=== PATIENT | female | born 1950 | race Caucasian/White ===

== ENCOUNTER 2017-09-13 10:02 | Emergency (ER) | payer MEDICARE, MEDICAID, SELFPAY ==
[2017-09-13 10:04] VITALS: BP 125/83; PULSE 75; RESP 17; TEMP 36.4; O2SAT 95; BMI 56.5
--- NOTE | 2017-09-13 11:45 | ED.VISSUMM ---
- ER Visit Summary Date of Service: 09/13/17 Chief Complaint: Dislodged PEG tube History of Present Illness: The patient is a 67 F presenting secondary to a dislodged PEG tube. Patient has a history of an anoxic brain injury and has had a long-standing PEG tube. [facility] was [facility] to [facility] at the [facility] for an unknown amount of time. Nursing was unable to replace this. Physical Examination: Physical exam unremarkable except for the patient's baseline anoxic brain injury. Abdominal exam shows the PEG site with mild swelling and erythema but no drainage. Test Results: None indicated Emergency Department Course and Treatment: Patient presented with dislodgment of her PEG tube. A PEG tube was obtained from central supply. I lubricated this with lubricating jelly, and using slow gentle pressure I was able to replace the PEG tube into the stomach. Gastric contents immediately were returned into the tube confirming placement. Balloon was inflated to 6 cc. Patient tolerated this well. Patient will be discharged. Disposition: Discharge Impression: 1. Visit for PEG tube malfunction 2. PEG tube replacement by ED physician This note was generated with [employer] dictation software. It may contain incorrect words, spelling, and punctuation that were not noted in review of the chart prior to signing ED Disposition - Plan for ED Patient: Disposition: Home or Assisted Living Chief Complaint: Wound Check Diagnosis: PEG tube malfunction Instructions: ED G Tube Replacement Referrals: Raman Gomez III, MD [Primary Care Provider] - As Needed
--- NOTE | 2017-09-13 11:48 | ED.DCSUM_ITS ---
- ER Visit Summary Date of Service: 09/13/17 Chief Complaint: Dislodged PEG tube History of Present Illness: The patient is a 67 F presenting secondary to a dislodged PEG tube. Patient has a history of an anoxic brain injury and has had a long-standing PEG tube. It was found to be out at the shelter for an unknown amount of time. Nursing was unable to replace this. Physical Examination: Physical exam unremarkable except for the patient's baseline anoxic brain injury. Abdominal exam shows the PEG site with mild swelling and erythema but no drainage. Test Results: None indicated Emergency Department Course and Treatment: Patient presented with dislodgment of her PEG tube. A PEG tube was obtained from central supply. I lubricated this with lubricating jelly, and using slow gentle pressure I was able to replace the PEG tube into the stomach. Gastric contents immediately were returned into the tube confirming placement. Balloon was inflated to 6 cc. Patient tolerated this well. Patient will be discharged. Disposition: Discharge Impression: 1. Visit for PEG tube malfunction 2. PEG tube replacement by ED physician This note was generated with [employer] dictation software. It may contain incorrect words, spelling, and punctuation that were not noted in review of the chart prior to signing ED Disposition - Plan for ED Patient: Disposition: Home or Assisted Living Chief Complaint: Wound Check Diagnosis: PEG tube malfunction Instructions: ED G Tube Replacement Referrals: Raman Gomez III, MD [Primary Care Provider] - As Needed
[2017-09-13 11:51] VITALS: BP 110/48; PULSE 69; RESP 16; O2SAT 99
== END 2017-09-13 12:24 | disposition home or self-care (01) ==
LOC: ED 12:00
PROVIDERS: Emergency Provider Emergency Medicine; Family Provider Family Medicine; PCP Family Medicine
DX: Z43.1 Encounter for attention to gastrostomy (principal); G93.1 Anoxic brain damage, not elsewhere classified
CPT/HCPCS: 43760; 99284

== ENCOUNTER 2017-09-14 01:53 | Emergency (ER) | payer MEDICARE, MEDICAID, SELFPAY ==
[2017-09-14 01:54] VITALS: BP 134/112; PULSE 71; RESP 18; TEMP 36.1; O2SAT 94; BMI 27.3
--- NOTE | 2017-09-14 02:04 | ED.VISSUMM ---
- ER Visit Summary Date of Service: 09/14/17 Chief Complaint: PEG tube fell out History of Present Illness: The patient is a 67 F with history of anoxic brain injury who presents for PEG tube placement. Patient was seen earlier yesterday for the same complaint, after her PEG tube came out and staff at the nursing facility were unable to reinsert it. Patient had a PEG tube replaced in the emergency department and was [facility] facility. Patient returns now with PEG tube once again coming out and staff unable to replace it. Patient has an 18 Luxembourger tube. No other complaints or concerns other than PEG tube placement. Physical Examination: Patient is awake and alert, normal for self. Examination of the abdomen shows gastrostomy site with mild erythema but no exudate or induration. Abdomen is soft and nontender. Test Results: ] Clinical Impression(s) from Imaging Studies KUB X-Ray 09/14/17 02:50 IMPRESSION: Gastrostomy tube is in adequate position. Electronically Signed: Alejandro Lazaro MD at 3:16 EDT , Service support , Emergency Department Course and Treatment: An 18 Luxembourger PEG tube was not available for replacement. Thus a 20 Luxembourger tube was used as a temporary replacement until the [facility] facility can obtain an 18 Luxembourger for definitive replacement. Using 6 cc of sterile water, the balloon was inflated and had no leakage. The sterile water was aspirated from the balloon, and the tube was lubricated. Using gentle pressure, the tube easily slid into the gastrostomy site. The balloon was inflated with the 6 cc of sterile water. An x-ray of the abdomen with Gastrografin was performed to confirm proper placement of the tube, and tube was in satisfactory position. She was [facility] to her [facility] facility with instructions that the 20 Luxembourger tube will need to be replaced with the appropriate sized 18 Luxembourger PEG tube as soon as possible. Treatment Plan: [] Disposition: [] Impression: recurrent PEG tube displacement, replacement of PEG tube by physician This note was generated with [employer] Technologies[employer] software. It may contain incorrect words, spelling, and punctuation that were not noted in review of the chart prior to signing ED Disposition - Plan for ED Patient: Disposition: Assisted Facility Chief Complaint: Other, Pain/Inj Instructions: ED G Tube Replacement Referrals: Raman Gomez III, MD [Primary Care Provider] - 1 Day for another exam Additional Instructions: Your feeding tube was temporarily replaced tonight with a 20 Luxembourger tube. The balloon was inflated with 6 cc of sterile water. Placement was confirmed with an x-ray and Gastrografin dye. Please follow-up as soon as possible with your doctor to have the correct size tube, which is an 18 Luxembourger, placed. If you have any worsening of your condition or any new concerning symptoms, please return immediately to the emergency department for another evaluation.
--- NOTE | 2017-09-14 02:05 | NURSING ---
called nursing facility to confirm leg tub size and nursing refractory products supervisor is finding a peg tube to correctly fit the pt.
--- NOTE | 2017-09-14 02:30 | NURSING ---
used a 20 vietnamese peg tube and inserted into the pt site. before placement, checked balloon with sterile water prior to the insertion, no leakage noted when inflated. peg tube inserted and 5cc balloon inflated with the sterile water.
--- NOTE | 2017-09-14 02:40 | NURSING ---
peg tubed flushed with 30 cc w/ no issues
--- NOTE | 2017-09-14 02:50 | RAD_ITS ---
STUDY: X-RAY - ABDOMEN REASON FOR EXAM: Female, 67 years old. Replacement of PEG tube. Confirm PEG tube placement. TECHNIQUE: A single AP supine view of the abdomen and upper pelvis was performed following injection of contrast material through an indwelling PEG tube. COMPARISON: None. FINDINGS: Gastrostomy tube tip overlies the expected region of the body the stomach. The stomach itself is not well delineated due to nondistention. There is contrast within the duodenum and proximal loops of jejunum and there is also minimal contrast within the gastric lumen. This suggests that the tube is within the lumen of the stomach and its tip is directed towards the duodenum. There is no demonstrated leakage of contrast into the peritoneal cavity or into the abdominal wall.. There is an unremarkable bowel gas pattern. There is no demonstrated free abdominal air. There are 2 tubes overlying the right side of the abdomen, of indeterminate significance.. Normal soft tissue structures. Normal visualized osseous structures. RAD/Abdomen Single View IMPRESSION: Gastrostomy tube is in adequate position. Electronically Signed: Alejandro Lazaro MD at 3:16 EDT , Service support ,
--- NOTE | 2017-09-14 03:29 | DCINST.ED_ITS ---
ED Disposition - Plan for ED Patient: Disposition: Retirement Facility Chief Complaint: Other, Pain/Inj Instructions: ED G Tube Replacement Referrals: Raman Gomez III, MD [Primary Care Provider] - 1 Day for another exam Additional Instructions: Your feeding tube was temporarily replaced tonight with a 20 Nicaraguan tube. The balloon was inflated with 6 cc of sterile water. Placement was confirmed with an x-ray and Gastrografin dye. Please follow-up as soon as possible with your doctor to have the correct size tube, which is an 18 Nicaraguan, placed. If you have any worsening of your condition or any new concerning symptoms, please return immediately to the emergency department for another evaluation.
--- NOTE | 2017-09-14 04:01 | ED.RN ---
REPORT CALLED TO NURSE AT [facility]
== END 2017-09-14 04:02 | disposition skilled nursing facility (03) ==
PROVIDERS: Emergency Provider Emergency Medicine; Family Provider Family Medicine; PCP Family Medicine
DX: Z43.1 Encounter for attention to gastrostomy (principal); Z87.820 Personal history of traumatic brain injury
CPT/HCPCS: 43760; 74018; 99284

== ENCOUNTER 2018-04-18 06:00 | Observation (INO) | payer MEDICARE, MEDICAID, SELFPAY ==
[2018-04-18] VITALS (9 sets, daily range): BP systolic 89–140; BP diastolic 51–78; PULSE 75–84; RESP 16–20; TEMP 35.9–37.3; O2SAT 94–96; BMI 24.9; BMI 27.4
--- NOTE | 2018-04-18 07:13 | ED.VISSUMM ---
- ER Visit Summary Date of Service: 04/18/18 Chief Complaint: Pulled PEG tube out History of Present Illness: The patient is a 67 F who presents after having pulled her PEG tube out. She has a history of encephalopathy and anoxic brain injury. On review of records she does appear to have done this before. No history is able to be obtained from the patient. She is nonverbal. Physical Examination: Initial blood pressure 89/60 vitals otherwise unremarkable Moist mucous membranes Heart regular rate and rhythm Lungs are clear Abdomen soft There is some mild oozing and bleeding from a left upper abdominal wound Test Results: Not indicated Emergency Department Course and Treatment: I was unable to replace the PEG tube. I am unable to even follow the tract. I spoke to Dr. Sharma. He asked that the patient be admitted under the hospitalist service on observation status with plan for EGD and PEG replacement later today. Treatment Plan: [] Disposition: Admit Impression: PEG malfunction This note was generated with [employer] dictation software. It may contain incorrect words, spelling, and punctuation that were not noted in review of the chart prior to signing ED Disposition - Plan for ED Patient: Referrals: Raman Gomez III, MD [Primary Care Provider] -
--- NOTE | 2018-04-18 07:38 | PCM.HP.STD ---
Problem List (1) PEG tube malfunction Status: Acute History of Present Illness Date of Admission: 04/18/18 Chief Complaint: pulled out peg tube The patient is a 67 year old F with anoxic brain injury, pulled out her PEG tube. Sent to the emergency room was attempted to be replaced but was unsuccessful. Dr. Carrizales, the emergency room, contacted Dr. Overton of general surgery be in today to attempt to replace the PEG tube. Patient is confused and nonverbal and unable to provide any history whatsoever. [] Past Medical History Medical History: Medical History (Last Updated 04/18/18 @ 07:41 by Alex Rosenberg DO) Anemia D64.9 Anoxic brain injury G93.1 Dysphagia R13.10 GERD (gastroesophageal reflux disease) K21.9 Hydrocephalus in adult G91.9 Allergies ampicillin Allergy (Verified 09/14/17 01:56) Unknown levofloxacin Allergy (Verified 09/14/17 01:56) Unknown Penicillins Allergy (Verified 09/14/17 01:56) Unknown piperacillin Allergy (Verified 09/14/17 01:56) Unknown Quinolones Allergy (Verified 09/14/17 01:56) Unknown rifampin Allergy (Verified 09/14/17 01:56) Unknown streptomycin Allergy (Verified 09/14/17 01:56) Unknown tazobactam Allergy (Verified 09/14/17 01:56) Unknown Home Medications: Ambulatory Orders Medication Instructions Recorded Cranberry Fruit Extract [Cranberry 1 gm GT QHS 09/14/17 Extract] Multivitamin [Daily Multiple 1 each GT DAILY 09/14/17 Vitamin] Omeprazole [Prilosec] 20 mg GT QHS 09/14/17 Surgical History: - - PEG Lives: [facility] Living Smoking Status: Unknown if ever smoked Review of Systems Comment: Given the patient's chronic encephalopathy and nonverbal status, further social history, review of systems is unobtainable. VTE Information - Inpt Only VTE Present on Admission: No VTE Mechan Device Prophylaxis: SCD's VTE Pharm Prophylaxis ordered?: No Patient Problems: Active and Suspected Problems PEG tube malfunction (Acute) - Physical Exam General: Confused, - - Awake. Does not respond to any commands. Clutching a baby doll in her arms. HEENT: Atraumatic, Normocephalic Oral: Moist Mucosa, No Gingival or Mucosal Lesions/ Ulcerations Neck: No Nodes, Thyroid Normal Size and Texture Lungs: Clear to auscultation, Normal air movement, No rhonchi, No wheeze Cardiovascular: Regular rate, Regular Rhythm, Normal S1, Normal S2, No murmurs Abdomen: Bowel Sounds Present, Soft, Non Tender, Non-Distended, Obese, - - Stoma in left upper quadrant with some mild sanguinous drainage. No surrounding erythema or cellulitis. Extremities: No edema, No Calf Tenderness Musculoskeletal: No Tenderness to Palpation of Joints or Extremities, Muscle Wasting Vital Signs Temp Pulse Resp BP Pulse Ox 36.3 C L 84 18 89/60 L 96 04/18/18 06:02 04/18/18 06:02 04/18/18 06:02 04/18/18 06:02 04/18/18 06:02 Oxygen Delivery Method Room Air Weight: 73.255 kg Body Mass Index (BMI) 24.9 Assessment/Plan All Active Problems PEG tube malfunction (Acute) 1. Pulled out PEG tube This occurred because encephalopathy and unawareness of her overall clinical situation. Could not be replaced by the emergency room physician. Patient being brought under observation status where a general surgeon will attempt to replace it either bedside or in an endoscopy suite. Patient will be n.p.o. In the interim. We will check some preliminary labs including CBC, INR and BMP 2. DVT prophylaxis with SCDs for now Advanced care planning: Spent an additional the history and physical discussing with the patient's sister, Elaine Andino, who is the patient's legal guardian. Patient is DNR Comfort Care arrest. Also discussed and verify that the patient has no quality of life at home. Ms. Andino states that the only reason the patient is being kept alive is because of the patient's mother's insistence who is 97 years old. Ms. Andino states that if the patient were to that would kill her mother. Did offer palliative care but they state they have seen them before but not ready to proceed. Patient would be an ideal hospice candidate. Code Visit OBSV E&M: 05624 Initial observation care L2 Procedures: 21903 Advncd Care Plan 30 Min
--- NOTE | 2018-04-18 09:10 | ED.RN ---
FLOOR QUESTIONED WHY PT DID NOT HAVE A IV OR ANTIBIOTICS GIVEN. THOSE WERE NOT ORDERED IN ED AND MEDS WERE ORDERED BY DR SULTANA
--- NOTE | 2018-04-18 09:53 | EKGRS_ITS ---
Test Reason : PREOP Blood Pressure : / mmHG Vent. Rate : 096 BPM Atrial Rate : 076 BPM P-R Int : 166 ms QRS Dur : 062 ms QT Int : 390 ms P-R-T Axes : 067 018 043 degrees QTc Int : 492 ms Sinus rhythm with occasional and consecutive Premature ventricular complexes and Fusion complexes Low voltage QRS Septal infarct , age undetermined Abnormal ECG Confirmed by FREDYD DON, GARÍCA ([id number]), editorial intern ROBERTO BLAKE ([id number]) on 04/26/2018 12:05:14 PM Referred By: VICENTE Confirmed By:GARCÍA HAYES MD
[2018-04-18 10:30] LABS: Absolute Lymphocyte Count 1.54 X10^3/ul (0.83-4.51); Absolute Neutrophil Count 3.4 X10^3/uL (2.0-7.7); Basophil# 0.04 X10^3/uL; Basophil% 0.7 % (0-1); Eosinophil# 0.18 X10^3/uL; Eosinophils% 3.2 % (0-5); Lymphocyte # 1.54 X10^3/ul (4.0); Lymphocyte % 27.7 % (19-41); Mean Corp Hgb Conc 32.6 g/gl (32-36); Mean Corpuscular Hgb 31.9 pg (27.0-32.0); Mean Corpuscular Volume 97.9 fL (81-99); Mean Platelet Vol. 11.8 fl (6.2-12.0); Monocyte# 0.44 X10^3/uL; Monocyte% 7.9 % (0-10); Neutrophil # 3.35 X10^3/uL (2.7-7.7); Neutrophil % 60.3 % (47-70); Platelet Count 127 K/mm3 (150-450); RBC Distribution Width CV 14.3 % (11.6-14.6); RBC Distribution Width SD 50.9 fl (35.1-43.9); Red Blood Count 4.39 M/mm3 (4.2-5.4); White Blood Count 5.6 K/mm3 (4.4-11.0)
[2018-04-18 10:31] LABS: POSITIVE COUNT NO; POSITIVE DIFFERENTIAL NO; POSITIVE MORPHOLOGY NO
[2018-04-18 10:31] LABS: Anion Gap 6 (5-15); BUN 24 mg/dL (7-18); BUN/Creat Ratio 56.1 RATIO (10-20); Calcium,Total 8.1 mg/dL (8.5-10.1); Chloride 112 mmol/L (98-107); Creatinine, Serum 0.43 mg/dL (0.55-1.02); EST Glomerular Filtration Rate 156 mL/min (>60); Est Glom Filt Rate - Afr Amer 189 mL/min (>60); Estimated Creatinine Clearance 53.09 ml/min; Glucose 85 mg/dL (74-106); Potassium 4.4 mmol/L (3.5-5.1); Sodium Level 142 mmol/L (136-145)
[2018-04-18 11:13] LABS: International Normalized Ratio 1.1; Prothrombin Time (Protime)PT. 14.5 SECONDS (11.7-14.9)
--- NOTE | 2018-04-18 11:30 | CASEMGMT ---
Addendum entered by Caitlyn Dunbar 04/18/18 12:31: SW attempted to call pt's sister Elaine, no answer, voicemail left. SW spoke with RN who states she spoke to Elaine earlier and Elaine is not able to come in today. SW will attempt to call pt's sister Elaine as time permits. Original Note: Addendum entered by Caitlyn Dunbar 04/18/18 11:58: SW received letter of guardianship from [facility]. SW placed document on pt's chart. Original Note: Social Work Note Pt is listed as being from [facility]. Per H+P, pt has anoxic brain injury, confused and nonverbal. H+P states pt's sister Elaine Andino is pt's legal guardian. SOPHIA placed a call to Marga at [facility] and per Marga pt is halfway resident at [facility], has bed hold, and is able to return once medically cleared. Marga states that she has guardianship paperwork that she is able to fax to this worker. SW will wait to see if pt's sister Elaine comes to [facility] or will call Elaine to confirm discharge plans. Per H+P, pt would be ideal Hospice candidate. Plan: Pt to likely return to [facility] halfway once medically cleared Caitlyn Dunbar LABOR RELATIONS ANALYST, LENS MARKER
--- NOTE | 2018-04-18 12:36 | CASEMGMT ---
Addendum entered by Caitlyn Dunbar 04/18/18 15:35: Green sheet on pt's chart in the event pt is able to discharge later this evening. Original Note: Social Work Note SW received call from pt's Legal Guardian and sister Elaine. 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 Plan: [facility] once medically cleared Caitlyn Dunbar CATERING ASSOCIATE, HOME DAY CARE PROVIDER
--- NOTE | 2018-04-18 12:54 | CON.PCM_ITS ---
<Erika Romero - Last Filed: 04/18/18 12:54> Problem List (1) PEG tube malfunction Status: Acute - Consult Date of Consult: 04/18/18 - Reason for Consult HISTORY AND PHYSICAL ? Elena FLANAGAN 1950 ? CHIEF COMPLAINT: ??pulled out PEG tube ? HPI: The patient is a 67 year old female who presented to the emergency department at [facility] on 04/18/18 after pulling out her PEG tube. 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 ?She is nonverbal and history is obtained from her chart, no family present at time of visit. The patient originally had a PEG placed in [place] and has had multiple replacements since that time.? The patient is known previously to Dr. Sharma, she had a prior PEG tube replaced by him in 2012. The emergency department physician attempted to replace the PEG tube in the ED but this was unsuccessful. The was admitted to the floor by the hospitalist service for observation and Dr. Sharma was consulted for replacement of the PEG tube. No known history of problems with sedation based upon chart review. ? 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 ? ? PAST SURGICAL HISTORY Egd W/O [facility] Specimen W/Bx - 03/29/2005 EGD with PEG tube replacement 07/2012 ? ? ? ALLERGIES: Levaquin; Rocephin; Streptomycin; Zosyn ? PERSONAL HISTORY: SOCIAL HISTORY Marital Status: ? Tobacco Use: Never Alcohol Use: No Drug Use: No Sexual Activity: Not on file ?? ? FAMILY HISTORY: No family history on file ? REVIEW OF SYMPTOMS: unable to obtain, patient nonverbal ? PHYSICAL EXAMINATION: ? General: ?The patient is 67 year old female, well nourished, well hydrated in no acute distress. ?The patient is nonverbal ? HEENT: ?Normal cephalic, ataumatic, pupils are equally round, sclera are anicteric, mucous membranes are moist, oropharynx is clear. ?Neck has no masses, asymmetry or lymphadenopathy. ? ? Respiratory: ?Clear to auscultation and percussion. ?Normal respiratory excursion and pattern. ? Cardiac: ?Examination is regular rate and rhythm. Normal S1/S2 ? Abdominal exam: ?+ small seeping wound on abdomen at PEG site. Soft, nontender, ?with no palpable masses. ?No hepatosplenomegaly. ?No palpable hernias. ? Rectal exam: exam deferred ? Extremities: ?no clubbing, cyanosis or edema. ?No adenopathy. ? Other: ? ? LABORATORY VALUES: As Noted ? RADIOLOGIC STUDIES: ?As Noted ? IMPRESSION: patient pulled out PEG tube, need for replacement ? PLAN: ?I have reviewed my findings with Dr. Sharma, who will also evaluate the patient. ??He plans to perform EGD with replacement of PEG tube later this afternoon ? Diagnoses: 536.42 PEG tube malfunction ?(primary encounter diagnosis) Erika Romero PA-C <Viktor Sharma - Last Filed: 04/18/18 15:58> - Consult Date of Consult: 04/18/18 - Reason for Consult H&P reviewed, patient with displaced PEG tube in persistent vegetative state. contracted, Cardioresp exam stable as above. discussed with family for PEG tube placement
--- NOTE | 2018-04-18 13:11 | NURSING ---
CALLED REPORT TO ENDO PT TRANSFERRED TO ENDO IN BED.
--- NOTE | 2018-04-18 14:00 | GASB_PTH ---
PATIENT: RONALD FLANAGAN LOC: MS3 U#:[id number] AGE/SX: 67/F ROOM: NM324 RE04/18/[address]: Dr. Alex Rosenberg DO : 1950 BED: 1 DIS: 04/18/2018 SPEC #: [id number] RECD: 04/18/18 16:12 STATUS: SIDDHARTHA REQ #: [id number] ELSI: 04/18/18 14:[address]: Viktor Sharma DEPT: SURGICAL PATHOLOGY RECD BY: Speedy Frazier ENTERED: 04/19/18 10:25 SP TYPE: Gastric Bx OTHR DR: DO Dr. Raman Valladares III, MD Dr. Richard Guttman, MD Tissues: Gastric mucous membrane Procedures: Surgery Specimen Level IV Comments: @ Ordering doctor for SUIV edited from to DR.RGUTTM Tristan by MEAGAN at 04/19/18 1515 @ Submitting doctor edited from to DR.RGUTTM Tristan by MEAGAN at 04/19/18 1515 HEADER OPERATION: EGD - PEG tube insertion PRE-OP DIAGNOSIS: PEG tube malfunction / needs replaced TISSUE SUBMITTED: Antral biopsy for histo and H. pylori MICROSCOPIC DIAGNOSIS Antral biopsy: Mild gastritis. See microscopic description and comment. LARS:john 04/20/18 COMMENT The results of immunohistochemistry for Helicobacter pylori will be reported separately ([id number]). MICROSCOPIC DESCRIPTION Slides are reviewed. The specimen shows fragments of gastric mucosa with chronic inflammatory cell infiltrates in the lamina propria consisting of lymphocytes and plasma cells, consistent with mild chronic gastritis. GROSS DESCRIPTION Received in fixative is one container labeled with the patient's name and designated antral biopsy. The specimen consists of one irregular fragment of light aguilar soft tissue that measures 0.3 x 0.2 x 0.1 cm. The specimen is totally submitted in one cassette. / LARS:john 04/19/18 TC:3 [facility]: [id number]
--- NOTE | 2018-04-18 14:00 | IMM_PTH ---
PATIENT: RONALD FLANAGAN LOC: MS3 U#:[id number] AGE/SX: 67/F ROOM: TN324 RE04/18/[address]: Dr. Alex Rosenberg DO : 1950 BED: 1 DIS: 04/18/2018 SPEC #: [id number] RECD: 04/20/18 09:06 STATUS: SIDDHARTHA REQ #: [id number] ELSI: 04/18/18 14:[address]: Viktor Sharma DEPT: IMMUNOHISTOCHEMISTRY RECD BY: Chel Motley ENTERED: 04/20/18 09:07 SP TYPE: IMMUNO OTHR DR: DO Dr. Raman Valladares III, MD Tissues: Stomach, NOS Procedures: H Pylori (initial) PHYSICIAN & INSTITUTION [place] [id number] SPECIMEN INFORMATION: Tissue Source: Antral biopsy Clinical Info: PEG tube malfunction Specimen Number: [id number] CPT code: 46982 METHODOLOGY: Deparaffinized sections of prefer/formalin-fixed tissue or PAP/DQ stained slides are incubated with monoclonal/polyclonal antibodies/oligonucleotide probes. Localization is made via biotin free immunoperoxidase method. Appropriate controls are performed and reacted as expected. Results on target cell population are indicated in the following table: RESULTS: ANTIBODY / CLONE RESULT H Pylori (polyclonal) negative These tests were developed and their performance characteristics determined by [facility]. They may not have been cleared or approved by the U.S. Food and Drug Administration. The FDA has determined that such clearance or approval is not necessary. INTERPRETATION: Antral biopsy: Negative for Helicobacter pylori organisms. SJ:john 04/23/18
--- NOTE | 2018-04-18 15:53 | CASEMGMT ---
Social Work Note [facility] Caitlyn Dunbar RELAY CHECKER, RAILCAR SWITCHER
--- NOTE | 2018-04-18 15:57 | OP.ENDO_ITS ---
Patient Name: Elena Mix Procedure Date: 04/18/2018 1:37 PM Date of : 1950 Age: 67 Procedure: Upper GI endoscopy Indications: Place PEG because patient is unable to eat, Replace PEG tube because existing gastrostomy tube came out Providers: Viktor Sharma MD Medicines: Monitored Anesthesia Care Patient Profile: This is a 67 year old female. Refer to note in patient chart for documentation of history and physical. Complications: No immediate complications. Procedure: Pre-Anesthesia Assessment: - Prior to the procedure, a History and Physical was performed, and patient medications and allergies were reviewed. The patient is unable to give consent secondary to the patient being legally incompetent to consent. The risks and benefits of the procedure and the sedation options and risks were discussed with the patient's mother. All questions were answered and informed consent was obtained. Patient identification and proposed procedure were verified by the physician in the procedure room. Mental Status Examination: persistent vegatative state. Airway Examination: small/crowded oropharyngeal airway. Respiratory Examination: clear to auscultation. CV Examination: normal. Prophylactic Antibiotics: The patient requires prophylactic antibiotics for planned PEG placement. The patient received antibiotic therapy today, before the procedure started. Prior Anticoagulants: The patient has taken no previous anticoagulant or antiplatelet agents. ASA Grade Assessment: III - A patient with severe systemic disease. After reviewing the risks and benefits, the patient was deemed in satisfactory condition to undergo the procedure. The anesthesia plan was to use monitored anesthesia care (MAC). Immediately prior to administration of medications, the patient was re-assessed for adequacy to receive sedatives. The heart rate, respiratory rate, oxygen saturations, blood pressure, adequacy of pulmonary ventilation, and response to care were monitored throughout the procedure. The physical status of the patient was re-assessed after the procedure. After obtaining informed consent, the endoscope was passed under direct vision. Throughout the procedure, the patient's blood pressure, pulse, and oxygen saturations were monitored continuously. The gastroscope was introduced through the mouth, and advanced to the jejunum. The upper GI endoscopy was accomplished without difficulty. The patient tolerated the procedure well. Scope In: 3:39:25 PM Scope Out: 3:47:20 PM Total Procedure Duration Time 0 hours 7 minutes 55 seconds Findings: The examined jejunum was normal. The in the duodenum was normal. There was evidence of a dislodged gastrostomy tube present in the gastric body. Placement of an externally removable PEG with no T-fasteners was successfully completed. The external bumper was at the 3.5 cm marking on the tube. Scattered mild inflammation characterized by congestion (edema), erosions and erythema was found in the gastric body. Biopsies were taken with a cold forceps for Helicobacter pylori testing using PyloriTek test. Biopsies were taken with a cold forceps for histology. The examined esophagus was normal. Impression: - Normal examined jejunum. - Normal. - Dislodged gastrostomy tube present. - Chronic gastritis. Biopsied. - Normal esophagus. - An externally removable PEG placement was successfully completed. Recommendation: - Please follow the post-PEG recommendations including: advance food and medications per primary care provider, change dressing once per day, start using PEG today and clean site with soap and water daily and dry thoroughly. - Continue present medications. Procedure Code(s): --- Professional --- 22475, Esophagogastroduodenoscopy, flexible, transoral; with directed placement of percutaneous gastrostomy tube 69039, Esophagogastroduodenoscopy, flexible, transoral; with biopsy, single or multiple CPT copyright 2017 [employer]. All rights reserved. The codes documented in this report are preliminary and upon crisis nurse review may be revised to meet current compliance requirements. Viktor Sharma MD 04/18/2018 3:56:11 PM This report has been signed electronically. Number of Addenda: 0 Note Initiated On: 04/18/2018 1:37 PM
--- NOTE | 2018-04-18 16:20 | PCM.TXEXTCAR ---
- Diet 04/18/18 09:29 Diet: Nothing Per Oral Isosource 1.5 50cc continuous. - Routine Orders/Code Status Code Status: DNRCC-A - Wound(s) stomach peg Wound Type: PEG TUBE Dressing Change: Dry Sterile Dressing right elbow Wound Type: cellulitiz - Problem/Diagnosis (1) PEG tube malfunction Status: Acute Current Visit: Yes - Allergies/Procedures Done in Hospital Allergies/Adverse Reactions: Allergies ampicillin Allergy (Verified 09/14/17 01:56) Unknown levofloxacin Allergy (Verified 09/14/17 01:56) Unknown Penicillins Allergy (Verified 09/14/17 01:56) Unknown piperacillin Allergy (Verified 09/14/17 01:56) Unknown Quinolones Allergy (Verified 09/14/17 01:56) Unknown rifampin Allergy (Verified 09/14/17 01:56) Unknown streptomycin Allergy (Verified 09/14/17 01:56) Unknown tazobactam Allergy (Verified 09/14/17 01:56) Unknown - Type of Care/Length of Stay Estimated LOS: More Than 30 Days Type of Care Needed: Correction/Assisted Living Rehab Potential: Poor Prognosis: Poor - Additional Orders/Day of Discharge Day of Discharge: 04/18/18 - Dietary and Speech Recommendations Dietitian Recommendations/Changes: If pt to be fed enterally prior to discharge, rec continue TF rate/flushes as ordered at [facility] -- Jevity 1.5 at goal rate of 50cc/hour w/ 38cc H2O flush every hour to provide 1800 calories, 76.56 g protein, and 1824cc free fluid per day. - Follow Up Care Primary Care Physician: Raman Gomez III, MD [Primary Care Provider] - Within 1 Month Please Follow Up With: Viktor Sharma MD When: 1 week
--- NOTE | 2018-04-18 16:22 | PCM.DC.SUM ---
Discharge Date and Diagnosis - Problem List Patient Problems: Active and Suspected Problems (Last Updated 04/18/18 @ 07:41 by Alex Rosenberg DO) PEG tube malfunction (Acute) Date of Admission: 04/18/18 Date of Discharge: 04/18/18 - Primary Discharge Diagnosis Active and Suspected Problems (Last Updated 04/18/18 @ 07:41 by Alex Rosenberg DO) PEG tube malfunction (Acute) Hospital Course and Treatment Operations: - - EGD with PEG replaced Summary of Care Provided: The patient is a 67 year old F in a persistent vegetative state, pulled out her PEG tube. Unable to be placed in the emergency room. Patient was brought to the medical floor and seen by Dr. Overton, general surgery, who performed EGD and replaced her PEG tube. Per Dr. Overton, patient can resume tube feeds and medications via the PEG tube. He would like for the patient follow-up with him in about 1 week. Advanced care planning: Spent an additional the history and physical discussing with the patient's sister, Elaine Andino, who is the patient's legal guardian. Patient is DNR Comfort Care arrest. Also discussed and verify that the patient has no quality of life at home. Ms. Andino states that the only reason the patient is being kept alive is because of the patient's mother's insistence who is 97 years old. Ms. Andino states that if the patient were to that would kill her mother. Did offer palliative care but they state they have seen them before but not ready to proceed. Patient would be an ideal hospice candidate.[] Patient Problems: Active and Suspected Problems (Last Updated 04/18/18 @ 07:41 by Alex Rosenberg DO) PEG tube malfunction (Acute) - Physical Exam Vital Signs Temp Pulse Resp BP Pulse Ox 37.3 C 76 20 H 121/77 H 96 04/18/18 16:16 04/18/18 16:16 04/18/18 16:16 04/18/18 16:16 04/18/18 16:16 Oxygen Delivery Method Room Air Weight: 80.7 kg Body Mass Index (BMI) 27.4 Intake and Output for Last 24 Hours 04/16/18 04/17/18 04/18/18 23:59 23:59 23:59 Intake Total 250 / 250 Balance 250 / 250 Laboratory Tests Past 24 Hrs 04/18/18 04/18/18 04/18/18 10:00 10:00 10:20 WBC Cancelled 5.6 Corrected WBC Cancelled RBC Cancelled 4.39 Hgb Cancelled 14.0 Hct Cancelled 43.0 MCV Cancelled 97.9 MCH Cancelled 31.9 MCHC Cancelled 32.6 RDW Cancelled 14.3 RDW Differential Cancelled 50.9 H Plt Count Cancelled 127 L MPV Cancelled 11.8 Immature Gran % (Auto) Cancelled 0.200 Neut % (Auto) Cancelled 60.3 Lymph % (Auto) Cancelled 27.7 [place] % (Auto) Cancelled 7.9 Eos % (Auto) Cancelled 3.2 Baso % (Auto) Cancelled 0.7 Immature Gran # (Auto) Cancelled Absolute Neuts (auto) Cancelled 3.4 Absolute Lymphs (auto) Cancelled 1.54 Absolute Monos (auto) Cancelled Total Counted Cancelled Not Reportable Neutrophils % (Manual) Cancelled Band Neutrophils % Cancelled Lymphocytes % (Manual) Cancelled Monocytes % (Manual) Cancelled Eosinophils % (Manual) Cancelled Basophils % (Manual) Cancelled Metamyelocytes % Cancelled Myelocytes % Cancelled Promyelocytes % Cancelled Blast Cells % Cancelled Plasma Cell % (Manual) Cancelled Other Cells % Cancelled Lymphocytes # Cancelled Nucleated RBCs/100 WBC Cancelled Differential Comment Cancelled Diff Path Review Cancelled Hypersegmented Neuts Cancelled Atypical Lymphocytes Cancelled Reactive Lymphocytes Cancelled Smudge Cells Cancelled Eosinophilia # Cancelled Basophilia # Cancelled Toxic Granulation Cancelled Dohle Bodies Cancelled Hansel Rods Cancelled Platelet Estimate Cancelled Plt Morphology Comment Cancelled RBC Morphology Cancelled Polychromasia Cancelled Hypochromasia Cancelled Poikilocytosis Cancelled Basophilic Stippling Cancelled Anisocytosis Cancelled Microcytosis Cancelled Macrocytosis Cancelled Spherocytes Cancelled Sickle Cells Cancelled Target Cells Cancelled Tear Drop Cells Cancelled Ovalocytes Cancelled Stomatocytes Cancelled [place] Bodies Cancelled [place] Cells Cancelled Bite Cells Cancelled Acanthocytes (Spur) Cancelled Rouleaux Cancelled Schistocytes Cancelled PT INR Sodium 142 Potassium 4.4 Chloride 112 H Carbon Dioxide 24.0 Anion Gap 6 BUN 24 H Creatinine 0.43 L Estim Creat Clear Calc 53.09 Est GFR (MDRD) Af Amer 189 Est GFR (MDRD) Non-Af 156 BUN/Creatinine Ratio 56.1 H Glucose 85 Calcium 8.1 L 04/18/18 10:52 WBC Corrected WBC RBC Hgb Hct MCV MCH MCHC RDW RDW Differential Plt Count MPV Immature Gran % (Auto) Neut % (Auto) Lymph % (Auto) [place] % (Auto) Eos % (Auto) Baso % (Auto) Immature Gran # (Auto) Absolute Neuts (auto) Absolute Lymphs (auto) Absolute Monos (auto) Total Counted Neutrophils % (Manual) Band Neutrophils % Lymphocytes % (Manual) Monocytes % (Manual) Eosinophils % (Manual) Basophils % (Manual) Metamyelocytes % Myelocytes % Promyelocytes % Blast Cells % Plasma Cell % (Manual) Other Cells % Lymphocytes # Nucleated RBCs/100 WBC Differential Comment Diff Path Review Hypersegmented Neuts Atypical Lymphocytes Reactive Lymphocytes Smudge Cells Eosinophilia # Basophilia # Toxic Granulation Dohle Bodies Hansel Rods Platelet Estimate Plt Morphology Comment RBC Morphology Polychromasia Hypochromasia Poikilocytosis Basophilic Stippling Anisocytosis Microcytosis Macrocytosis Spherocytes Sickle Cells Target Cells Tear Drop Cells Ovalocytes Stomatocytes [place] Bodies Liliana Cells Bite Cells Acanthocytes (Spur) Rouleaux Schistocytes PT 14.5 INR 1.1 Sodium Potassium Chloride Carbon Dioxide Anion Gap BUN Creatinine Estim Creat Clear Calc Est GFR (MDRD) Af Amer Est GFR (MDRD) Non-Af BUN/Creatinine Ratio Glucose Calcium Discharge Diet: No Restrictions Discharge Activity: Return to Normal Activity Home Medications: Medications to take at Discharge Multivitamin [Daily Multiple Vitamin] 1 each GT DAILY 09/14/17 Acetaminophen 650 mg RC Q4H PRN PRN 04/18/18 Acetaminophen [Pain & Fever] 650 mg GT Q4H PRN PRN 04/18/18 Ammonium Lactate 226 gm TP Q8H PRN PRN 04/18/18 Bisacodyl [Biscolax] 10 mg RC DAILY PRN 04/18/18 Guaifenesin [Robitussin] 10 ml GT Q4H PRN PRN 04/18/18 Lactose-Reduced Food/Fiber [Isosource 1.5 [place] Tube Feed Lq] 50 ml GT CONT 04/18/18 Magnesium Hydroxide [Milk Of Magnesia] 30 ml GT DAILY PRN PRN 04/18/18 Nystatin Powder [Mycostatin Powder] 1 applic TOPICAL BID 04/18/18 Primary Care Physician: Raman Gomez III, MD [Primary Care Provider] - Within 1 Month Please Follow Up With: Viktor Sharma MD When: 1 week Disposition: Home Minutes spent on discharge:: 25 Patient Condition:: Good Medical Necessity - Tobacco Use Smoking Status: Unknown if ever smoked Meaningful Use Info Meaningful Use Diagnoses (Choose all that apply): None applicable Code Visit OBSV E&M: 35281 Observ/hosp same date L2
--- NOTE | 2018-04-18 16:54 | NURSING ---
pt mother and sister tess here and notified that pt will be transferred back to [facility].
== END 2018-04-18 17:33 | disposition skilled nursing facility (03) ==
LOC: ED 07:12 → MS3 07:49
PROVIDERS: Surgery; Emergency Provider Emergency Medicine; Family Provider Family Medicine; PCP Family Medicine
PROC: 0DH64UZ Insertion of Feeding Device into Stomach, Percutaneous Endoscopic Approach (ICD-10-PCS; CPT 43246; principal; 2018-04-18 13:55)
DX: Z43.1 Encounter for attention to gastrostomy (principal); K21.9 Gastro-esophageal reflux disease without esophagitis; R13.10 Dysphagia, unspecified; G93.1 Anoxic brain damage, not elsewhere classified; G91.9 Hydrocephalus, unspecified; Z66 Do not resuscitate; R40.3 Persistent vegetative state; G91.1 Obstructive hydrocephalus; K29.50 Unspecified chronic gastritis without bleeding; Z79.899 Other long term (current) drug therapy; Z86.61 Personal history of infections of the central nervous system
CPT/HCPCS: 43239; 43246; 36415; 80048; 85025; 85610; 88305; 88342; 93005; 97802; 99218; 99283; A4216; G0378

== ENCOUNTER 2018-12-19 10:46 | Emergency (ER) | payer MEDICARE, MEDICAID, SELFPAY ==
[2018-04-18 10:49] VITALS: BMI 27.4
[2018-12-19 10:50] VITALS: BP 208/148; PULSE 72; RESP 16; TEMP 36.6; O2SAT 97; BMI 32.2
--- NOTE | 2018-12-19 11:12 | ED.VIS.GEN ---
History of Present Illness Chief Complaint: General Illness Informant: Patient Onset: Today Timing: Continuous Associated Symptoms: none reported Narrative: Patient is a residential resident, she is chronically altered mental status due to bacterial meningitis remotely, she does not eat or drink and uses a PEG for everything and it is clogged today. No other reported issues. Family at bedside states she is at baseline. - Past Medical History (1) Bacterial meningitis Status: Resolved Past Medical History - Allergies and Home Meds Allergies/Adverse Reactions: Allergies ampicillin Allergy (Verified 09/14/17 01:56) Unknown levofloxacin Allergy (Verified 09/14/17 01:56) Unknown Penicillins Allergy (Verified 09/14/17 01:56) Unknown piperacillin Allergy (Verified 09/14/17 01:56) Unknown Quinolones Allergy (Verified 09/14/17 01:56) Unknown rifampin Allergy (Verified 09/14/17 01:56) Unknown streptomycin Allergy (Verified 09/14/17 01:56) Unknown tazobactam Allergy (Verified 09/14/17 01:56) Unknown Primary Care Physician: Raman Gomez III, MD [Primary Care Provider] - Surgical History: - - PEG Lives: Skilled Nursing Smoking Status: Unknown if ever smoked Review of Systems ROS: Unable to Obtain - nonverbal Physical Exam Vital Signs/Narrative: Vital Signs Temp Pulse Resp BP Pulse Ox 12/19/18 10:50 97.8 F 72 16 208/148 H 97 Inital Vital Signs reviewed: Yes General: Well nourished, Well developed, Obese, No Acute Distress - smiling Abdomen: Soft, Nontender, Nondistended, Normal bowel sounds, - - PEG clogged w/ what appears to be tube feed, granular medications Skin: Normal color, No rash, - - PEG site benign, without erythema/erosion Neurological: Alert, Cranial nerves II-XII grossly intact, - - BUE contractures Diagnostic/Tx/Re-eval - Medical Decision Making PEG was unclogged by ED. She is otherwise at baseline has a benign abdomen and I feel she is stable to be discharged back to the residential at this time. The balloon of the tube appears to be intact, the hub is against the abdominal wall loosely without erosions and the site appears clean. Procedures Procedure(s): Gastrostomy repair --performed by ED MD, using a carbonated beverage, I was able to easily clear the clog. Gastric contents easily able to be aspirated and water able to be easily flushed without any pain to the patient. ED Disposition - Plan for ED Patient: Disposition: Home or Assisted Living Diagnosis: PEG tube malfunction Instructions: PEG Feeding Tube Care: Flushing Referrals: Raman Gomez III, MD [Primary Care Provider] - As Needed
== END 2018-12-19 12:45 | disposition home or self-care (01) ==
PROVIDERS: Emergency Provider Emergency Medicine; Family Provider Family Medicine; PCP Family Medicine
DX: K94.23 Gastrostomy malfunction (principal); R41.82 Altered mental status, unspecified; Z86.69 Personal history of other diseases of the nervous system and sense organs
CPT/HCPCS: 99283

== ENCOUNTER 2019-04-05 19:17 | Inpatient (IN) | payer MEDICARE, MEDICAID, SELFPAY ==
[2019-04-05] VITALS (7 sets, daily range): BP systolic 120–142; BP diastolic 69–87; PULSE 96–129; RESP 19–32; TEMP 37–38.2; O2SAT 94–97; BMI 27.9
[2019-04-05] MEDS: 0.9% Normal Saline 1,000 ML 999 ML IV ×2 (20:00→22:13)
--- NOTE | 2019-04-05 20:59 | EKG12_ITS ---
Test Reason : DYSRHYTHMIA Blood Pressure : / mmHG Vent. Rate : 102 BPM Atrial Rate : 102 BPM P-R Int : 130 ms QRS Dur : 074 ms QT Int : 368 ms P-R-T Axes : 031 011 025 degrees QTc Int : 479 ms Sinus tachycardia Inferior infarct , age undetermined Abnormal ECG Confirmed by FREDDY DON, GARCÍA ([id number]), order editor JUSTINE MACK ([id number]) on 04/08/2019 12:31:38 PM Referred By: AILEEN Confirmed By:GARCÍA HAYES MD
--- NOTE | 2019-04-05 21:05 | RAD_ITS ---
HISTORY: fever EXAM: XR Chest 1 View: COMPARISON: November 08, 2010 FINDINGS: # of images incl. paperwork: 1 Right neck, right chest and right upper quadrant catheter is likely a ventricular peritoneal shunt and is grossly unchanged in position The left hemidiaphragm is obscured with airspace disease that isn't used since the previous study Heart is not enlarged. Thoracic spondylosis remains mild Pulmonary vascularity is slightly indistinct. There may be a small left pleural effusions. RAD/Chest 1 View (Portable) IMPRESSION: New left lower lobe airspace disease obscuring left heart border and the left hemidiaphragm possibly due to left lower lobe pneumonia and possibly left basilar atelectasis with probable small left pleural effusion. at 2142 Reported and signed by: Vamshi Hancock MD Electronically Signed: Vamshi Hancock MD at 21:41 EST Tel , Service support ,
[2019-04-05 21:17] LABS: Absolute Lymphocyte Count 2.51 X10^3/uL (0.83-4.51); Basophil# 0.11 X10^3/uL; Basophil% 0.9 % (0-1); Eosinophil# 0.06 X10^3/uL; Eosinophils% 0.5 % (0-5); Hematocrit 54.5 % (37-47); Hemoglobin 17.1 g/dL (12.0-15.0); Lymphocyte # 2.51 X10^3/ul (4.0); Lymphocyte % 21.1 % (19-41); Mean Corp Hgb Conc 31.4 g/dL (32-36); Mean Corpuscular Hgb 32.4 pg (27.0-32.0); Mean Corpuscular Volume 103.2 fL (81-99); Monocyte# 1.18 X10^3/uL; Monocyte% 9.9 % (0-10); NRBC Flagged by Analyzer 0 % (0-5); Neutrophil # 7.99 X10^3/uL (2.7-7.7); Neutrophil % 67.2 % (47-70); Platelet Count 213 K/mm3 (150-450); RBC Distribution Width CV 14.1 % (11.6-14.6); Red Blood Count 5.28 M/mm3 (4.2-5.4); White Blood Count 11.9 K/mm3 (4.4-11.0)
[2019-04-05 21:23] LABS: International Normalized Ratio 1.2; Partial Thromboplast Time 27.2 Seconds (24.1-36.2); Prothrombin Time (Protime)PT. 14.5 SECONDS (11.7-14.9)
[2019-04-05 21:31] LABS: ALB/GLOB Ratio 0.8 RATIO (0.9-2.4); AST(SGOT) 26 U/L (15-37); Alanine Aminotransfer ALT/SGPT 61 U/L (13-56); Albumin, Serum 3.7 g/dL (3.2-5.0); Alkaline Phosphatase 94 U/L (45-117); Anion Gap 3 (5-15); BUN 39 mg/dL (7-18); BUN/Creat Ratio 50.4 RATIO (10-20); Calcium,Total 9.4 mg/dL (8.5-10.1); Chloride 122 mmol/L (98-107); Creatinine, Serum 0.77 mg/dL (0.55-1.02); EST Glomerular Filtration Rate 79 mL/min (>60); Est Glom Filt Rate - Afr Amer 95 mL/min (>60); Estimated Creatinine Clearance 54.32 ml/min; Globulin 4.5 g/dL (2.2-4.2); Glucose 112 mg/dL (74-106); Potassium 4.4 mmol/L (3.5-5.1); Protein, Total 8.2 g/dL (6.4-8.2); Sodium Level 155 mmol/L (136-145)
[2019-04-05 21:49] LABS: Lactic Acid 2.5 mmol/L (0.4-1.9)
[2019-04-05 22:05] LABS: Bacteria 0 SEEN /hpf (None Seen)
[2019-04-05 22:15] LABS: Color, Urine Yellow (Yellow); Glucose, Dipstick Normal (Normal); Ketone-Dipstick 5 mg/dl (Negative); Leukocyte Esterase-Dipstick 25 /ul (Negative); Nitrite-Dipstick Negative (Negative); Occult Blood-Urine 25 /ul (Negative); Protein-Dipstick 30 mg/dl (Negative); Urine Bilirubin Dipstick Negative (Negative); Urine Clarity Clear (Clear); Urine Urobilinogen 1 mg/dl (Normal)
[2019-04-05 22:26] LABS: Mucous, Urine 1+ /hpf (<or=2+); Red Blood Cells-Urine 0-5 SEEN /hpf (0-5); Squamous Epithelial Cells - UA 0-5 SEEN /hpf (5-10); White Blood Cells 0-5 SEEN /hpf (0-5)
--- NOTE | 2019-04-05 23:23 | ED.VIS.GEN ---
History of Present Illness Chief Complaint: Fever Informant: Family, SNF Limited by: Coma Onset: Today Narrative: Patient is a 68-year-old female with history of postinfectious acute necrotizing hemorrhagic encephalopathy presenting from [facility] for fever and hypoxia. Patient was noticed to have symptoms today. Patient is nonverbal at baseline so is not able to contribute. Her sister is in the room who is her medical power of attorney at law. Patient had a fever of 100.6 prior to arrival. Patient does have history of [employer] PER[employer] shunt. No other report given. 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, postinfectious acute necrotizing hemorrhagic encephalopathy, history of Pseudomonas pneumonia, seizure disorder, history of anoxic brain injury Surgical History: - - PEG Lives: Prison Smoking Status: Smoker, status unknown Review of Systems ROS: Unable to Obtain - Nonverbal General: Reports: Fever Physical Exam Vital Signs/Narrative: Vital Signs Temp Pulse Resp BP Pulse Ox 04/05/19 23:01 99.3 F H 96 19 H 120/76 96 04/05/19 22:14 99.3 F H 100 27 H 124/69 H 95 04/05/19 22:01 99.2 F H 100 24 H 124/69 H 97 04/05/19 21:00 98.6 F 101 H 26 H 131/71 H 95 04/05/19 20:57 101 H 26 H 131/71 H 95 04/05/19 19:24 99.7 F H 115 H 32 H 142/87 H 94 Inital Vital Signs reviewed: Yes General: Well nourished, Well developed, Contractures, No Acute Distress Head: Normocephalic, Atraumatic Eyes: Perrl, EOMI ENT: No rhinorrhea, TM's clear, Dry mucous membranes Neck: Supple, Nontender, No lymphadenopathy Cardiovascular: Regular rhythm, No murmurs, Tachycardia Respiratory: Chest nontender, Diminished - Left base, Decreased Air Movement, - - Tachypnea. Negative for: Rhonchi, Wheezing Abdomen: Soft, Nontender, Nondistended, Normal bowel sounds, - - PEG tube in place-leaking from distal end Extremities: Nontender, No edema Skin: Normal color, No rash Neurological: Coma, - - Is nonverbal does not respond to external stimuli Diagnostic/Tx/Re-eval Chest X-Ray - ED: 1 View, Read by ED Physician, Read by Radiologist, Left Infiltrate Clinical Impression(s) from Imaging Studies Chest X-Ray 04/05/19 21:05 IMPRESSION: New left lower lobe airspace disease obscuring left heart border and the left hemidiaphragm possibly due to left lower lobe pneumonia and possibly left basilar atelectasis with probable small left pleural effusion. at 2142 Reported and signed by: Vamshi Hancock MD Electronically Signed: aVmshi Hancock MD at 21:41 EST Tel , Service support , Laboratory Data 04/05/19 04/05/19 04/05/19 19:45 19:45 19:45 WBC 11.9 H RBC 5.28 Hgb 17.1 H Hct 54.5 H MCV 103.2 H MCH 32.4 H MCHC 31.4 L RDW Std Deviation 54.0 H RDW Coeff of Tru 14.1 Plt Count 213 MPV 13.0 H Immature Gran % (Auto) 0.400 Neut % (Auto) 67.2 Lymph % (Auto) 21.1 [place] % (Auto) 9.9 Eos % (Auto) 0.5 Baso % (Auto) 0.9 Absolute Neuts (auto) 8.0 H Absolute Lymphs (auto) 2.51 Nucleated RBC % 0 PT 14.5 INR 1.2 APTT 27.2 Sodium 155 H Potassium 4.4 Chloride 122 H Carbon Dioxide 30.0 Anion Gap 3 L BUN 39 H Creatinine 0.77 Estim Creat Clear Calc 54.32 Est GFR (MDRD) Af Amer 95 Est GFR (MDRD) Non-Af 79 BUN/Creatinine Ratio 50.4 H Glucose 112 H Lactic Acid Calcium 9.4 Total Bilirubin 0.80 AST 26 ALT 61 H Alkaline Phosphatase 94 Total Protein 8.2 Albumin 3.7 Globulin 4.5 H Albumin/Globulin Ratio 0.8 L Urine Color Urine Clarity Urine pH Ur Specific [place] Urine Protein Urine Glucose (UA) Urine Ketones Urine Occult Blood Urine Nitrite Urine Bilirubin Urine Urobilinogen Ur Leukocyte Esterase Urine RBC Urine WBC Ur Squamous Epith Cells Urine Bacteria Urine Mucus 04/05/19 04/05/19 19:45 21:50 WBC RBC Hgb Hct MCV MCH MCHC RDW Std Deviation RDW Coeff of Tru Plt Count MPV Immature Gran % (Auto) Neut % (Auto) Lymph % (Auto) [place] % (Auto) Eos % (Auto) Baso % (Auto) Absolute Neuts (auto) Absolute Lymphs (auto) Nucleated RBC % PT INR APTT Sodium Potassium Chloride Carbon Dioxide Anion Gap BUN Creatinine Estim Creat Clear Calc Est GFR (MDRD) Af Amer Est GFR (MDRD) Non-Af BUN/Creatinine Ratio Glucose Lactic Acid 2.5 H* Calcium Total Bilirubin AST ALT Alkaline Phosphatase Total Protein Albumin Globulin Albumin/Globulin Ratio Urine Color Yellow Urine Clarity Clear Urine pH 6.0 Ur Specific [place] 1.020 Urine Protein 30 H Urine Glucose (UA) Normal Urine Ketones 5 H Urine Occult Blood 25 H Urine Nitrite Negative Urine Bilirubin Negative Urine Urobilinogen 1 H Ur Leukocyte Esterase 25 H Urine RBC 0-5 SEEN Urine WBC 0-5 SEEN Ur Squamous Epith Cells 0-5 SEEN Urine Bacteria 0 SEEN Urine Mucus 1+ - Rhythm Strip Rhythm Strip: Sinus Tach Rate: 102 Ectopy: None - EKG Initial EKG Interpretation: Sinus Tachycardia, - - Sinus tachycardia at a rate of 102 Normal intervals Normal axis Normal ST segments - Medical Decision Making Patient is evaluated for fever. ON arrival she is hypoxic, tachypneic and tachycardiac. She is given IV fluids and does have improvement of her tachycardia. Patient is also given Tylenol for her fever. Clinically patient appears to have an infection. Chest x-ray shows likely pneumonia. This fits her clinical picture. Patient is a poor historian secondary to her history of anoxic brain injury and stroke. Her sisters at the bedside feels that she is at her baseline. Patient's lactate is elevated 2.5. She is given a total of 2 L of fluid in the ED. Tachycardia does improve while in the emergency room. Patient's sodium and chloride are elevated consistent with dehydration.White blood cell count is mildly elevated 11.9. Hemoglobin is elevated at 17.1. This is likely hemoconcentration again. Patient's creatinine is at her baseline. Urinalysis is not consistent with infection. Patient has multiple antibiotic allergies she started on vancomycin and meropenem with her history of Pseudomonas pneumonia as well as high risk of MRSA. Patient's flu swab is negative. Blood cultures are pending. Patient be admitted to medical floor for further treatment. She is hemodynamically stable while in the emergency room. She is requiring 2 L supplemental oxygen. Patient sister is agreeable with plan. Patient sister confirmed that patient is a DNR CCA. ED Disposition - Plan for ED Patient: Diagnosis: Severe sepsis, Left lower lobe pneumonia
--- NOTE | 2019-04-05 23:40 | PCM.HP.STD ---
Problem List (1) Severe sepsis Status: Acute (2) Pneumonia Status: Acute History of Present Illness Date of Admission: 04/05/19 Chief Complaint: fever The patient is a 68 year old F with a significant history of anoxic brain injury; hydrocephalus in adult for shunt who lives in a [place] [facility] presents with high-grade fever of 101.6 Fahrenheit at the [place] [facility]. Patient was given rectal Tylenol at the [place] [facility] but the fever did not doe. Patient is nonverbal. Per patient's sister [facility] did not report of any other symptoms. Highest temperature at our hospital was 100.8 Fahrenheit. Patient had tachypnea and tachycardia. White count was 11.9 and lactic acid was 2.5. Past Medical History Medical History: Medical History (Last Updated 04/18/18 @ 07:41 by Alex Rosenberg DO) Anemia D64.9 Anoxic brain injury G93.1 Dysphagia R13.10 GERD (gastroesophageal reflux disease) K21.9 Hydrocephalus in adult G91.9 Allergies ampicillin Allergy (Verified 09/14/17 01:56) Unknown levofloxacin Allergy (Verified 09/14/17 01:56) Unknown Penicillins Allergy (Verified 09/14/17 01:56) Unknown piperacillin Allergy (Verified 09/14/17 01:56) Unknown Quinolones Allergy (Verified 09/14/17 01:56) Unknown rifampin Allergy (Verified 09/14/17 01:56) Unknown streptomycin Allergy (Verified 09/14/17 01:56) Unknown tazobactam Allergy (Verified 09/14/17 01:56) Unknown Home Medications: Ambulatory Orders Medication Instructions Recorded Cran/Vitc/Mannose/Fos/Bromeln 3,875 mg GT QHS 04/05/19 [Uti-Stat Liquid] Multivitamin/Ferrous Gluconate 10 mg GT DAILY 04/05/19 [Multi-Delyn with Iron Liquid] Polyethylene Glycol 3350 [Miralax] 17 gm GT QHS 04/05/19 Surgical History: - - PEG; Shunt in head Lives: [facility] Smoking Status: Smoker, status unknown Alcohol: None - *Family History Maternal History Items: Heart Disease, Hypertension Paternal History Items: Stroke Review of Systems Unable to obtain accurate/complete ROS d/t: Vegitative state. longterm reports no other symptom. VTE Information - Inpt Only VTE Present on Admission: No VTE Mechan Device Prophylaxis: None VTE Pharm Prophylaxis ordered?: Yes Patient Problems: Active and Suspected Problems (Last Updated 04/18/18 @ 07:41 by Alex Rosenberg DO) Severe sepsis (Acute) Pneumonia (Acute) - Physical Exam Vitals/I&O's: Vital Signs Temp Pulse Resp BP Pulse Ox 99.3 F H 96 19 H 120/76 96 04/05/19 23:01 04/05/19 23:01 04/05/19 23:01 04/05/19 23:01 04/05/19 23:01 Oxygen Flow Rate (L/min) 2 Oxygen Delivery Method Nasal Cannula Weight: 83.4 kg Body Mass Index (BMI) 27.9 Intake and Output for Last 24 Hours 04/03/19 04/04/19 04/05/19 23:59 23:59 23:59 Intake Total 1000 / 1000 Balance 1000 / 1000 General: Alert, - - Non verbal HEENT: Atraumatic, EOMI, Normocephalic, - - pupil did not react to light Neck: Supple, Trachea Midline Lungs: Clear to auscultation, Normal air movement Cardiovascular: Normal S1, Normal S2, No murmurs, Tachycardic Abdomen: Bowel Sounds Present, Soft, Non Tender Extremities: No edema, Capillary Refill Less than 3 Seconds Skin: No rashes, No breakdown Musculoskeletal: No Muscle Wasting Neurological: - - Non verbal. Poor cognitive function Psych/Mental Status: - - Non verbal, In a vegitative state Microbiology Past 72 Hours 04/05/19 21:19 Mucosa - Nose Influenza Types A,B Direct FA (CRYSTAL) - Final Laboratory Results 04/05/19 19:45: WBC 11.9 H, RBC 5.28, Hgb 17.1 H, Hct 54.5 H, MCV 103.2 H, MCH 32.4 H, MCHC 31.4 L, RDW Std Deviation 54.0 H, RDW Coeff of Tru 14.1, Plt Count 213, MPV 13.0 H, Immature Gran % (Auto) 0.400, Neut % (Auto) 67.2, Lymph % (Auto) 21.1, [place] % (Auto) 9.9, Eos % (Auto) 0.5, Baso % (Auto) 0.9, Absolute Neuts (auto) 8.0 H, Absolute Lymphs (auto) 2.51, Nucleated RBC % 0 04/05/19 19:45: PT 14.5, INR 1.2, APTT 27.2 04/05/19 19:45: Sodium 155 H, Potassium 4.4, Chloride 122 H, Carbon Dioxide 30.0, Anion Gap 3 L, BUN 39 H, Creatinine 0.77, Estim Creat Clear Calc 54.32, Est GFR (MDRD) Af Amer 95, Est GFR (MDRD) Non-Af 79, BUN/Creatinine Ratio 50.4 H, Glucose 112 H, Calcium 9.4, Total Bilirubin 0.80, AST 26, ALT 61 H, Alkaline Phosphatase 94, Total Protein 8.2, Albumin 3.7, Globulin 4.5 H, Albumin/Globulin Ratio 0.8 L 04/05/19 19:45: Lactic Acid 2.5 H* 04/05/19 21:50: Urine Color Yellow, Urine Clarity Clear, Urine pH 6.0, Ur Specific [place] 1.020, Urine Protein 30 H, Urine Glucose (UA) Normal, Urine Ketones 5 H, Urine Occult Blood 25 H, Urine Nitrite Negative, Urine Bilirubin Negative, Urine Urobilinogen 1 H, Ur Leukocyte Esterase 25 H, Urine RBC 0-5 SEEN, Urine WBC 0-5 SEEN, Ur Squamous Epith Cells 0-5 SEEN, Urine Bacteria 0 SEEN, Urine Mucus 1+ Current Medications Vancomycin IV Pharmacy to Dose (1 ea/ Sodium Chloride) 500 mls @ 250 mls/hr IV X1 PRN; Protocol PRN Reason: Rx to Dose Meropenem 1 gm/ Sodium (Chloride) 120 mls @ 33 mls/hr IV X1 ONE Stop: 04/06/19 02:53 Vancomycin HCl 1,250 mg/ (Sodium Chloride) 275 mls @ 167 mls/hr IV X1 ONE Stop: 04/06/19 01:08 Assessment/Plan All Active Problems (Last Updated 04/18/18 @ 07:41 by Alex Rosenberg DO) Severe sepsis (Acute) Pneumonia (Acute) The patient is a 68 year old F with a significant history of anoxic brain injury; hydrocephalus in adult for shunt who lives in a [place] [facility] presents with high-grade fever of 101.6 tachypnea; tachycardia; fever; lactic acidosis and radiographic evidence of airspace disease consistent with severe sepsis secondary to pneumonia. Severe sepsis secondary pneumonia Fever at [facility] of 101.6 Fahrenheit and 100.8Fat the hospital. Heart rate more than 90 and respiratory rate more than 20; and with a radiographic evidence of airspace disease. Blood culture x2 was ordered at the emergency department; follow Lactic acid was 2.5 at the emergency department; trend Received vancomycin and Merrem at the emergency department. Patient has quinolones and penicillin allergy. We will continue patient on vancomycin and Merrem. MRSA nasal screen. Legionella urine antigen and streptococcus urine antigen ordered. Urinalysis showed occult blood and proteinuria. Unremarkable for UTI. Kelly catheter was placed at the emergency department. Upon discharge recommend follow-up urinalysis. Trend CBC and BMP. Dehydration Of note patient has a sodium of 155; well elevated from previous. BUN of 39 well elevated from previous. Received IV fluid IV fluid bolus in the emergency department. We will continue patient on maintenance IV hydration. Trend BMP. PEG tube feeding Continue tube feeding with water per protocol from [facility]. N.p.o. otherwise. DVT Prophylaxis Subcutaneous Lovenox Code Visit Inpatient E&M: 47786 Init Hosp L3
[2019-04-06] VITALS (13 sets, daily range): BP systolic 106–147; BP diastolic 77–91; PULSE 59–100; RESP 17–20; TEMP 36.4–37.2; O2SAT 96–99; BMI 26.9
[2019-04-06 01:12] LABS: Reflex Lactate? Y
--- NOTE | 2019-04-06 02:22 | PCM.RX.CS ---
Consult Pharmacy has been consulted to manage selected antiobiotic: Vancomycin Type of Consult: New start Suspected Infection: Sepsis, Pneumonia Prior Doses of Antibiotics Received/Current Regimen: Medications Vancomycin HCl 750 mg/ Sodium (Chloride) 265 mls @ 250 mls/hr IV Q12H LB Discontinued Medications Vancomycin HCl 1,250 mg/ (Sodium Chloride) 275 mls @ 167 mls/hr IV X1 ONE Stop: 04/06/19 01:08 Last Admin: 04/06/19 01:16 Dose: 167 mls/hr Labs: Sodium 155 mmol/L (136-145) H 04/05/19 19:45 Potassium 4.4 mmol/L (3.5-5.1) 04/05/19 19:45 Chloride 122 mmol/L (98-107) H 04/05/19 19:45 Carbon Dioxide 30.0 mmol/L (21.0-32.0) 04/05/19 19:45 Anion Gap 3 (5-15) L 04/05/19 19:45 BUN 39 mg/dL (7-18) H 04/05/19 19:45 Creatinine 0.77 mg/dL (0.55-1.02) 04/05/19 19:45 Est GFR (MDRD) Af Amer 95 mL/min (>60) 04/05/19 19:45 Est GFR (MDRD) Non-Af 79 mL/min (>60) 04/05/19 19:45 BUN/Creatinine Ratio 50.4 RATIO (10-20) H 04/05/19 19:45 Glucose 112 mg/dL (74-106) H 04/05/19 19:45 Microbiology: Microbiology 04/05/19 21:50 Urine Catheter - Catheter Legionella Antigen - Final 04/05/19 21:50 Urine Catheter - Catheter Streptococcus pneumoniae Antigen (M - Final 04/05/19 21:19 Mucosa - Nose Influenza Types A,B Direct FA (CRYSTAL) - Final Weight used for dosin.6 kg Estimated Creatinine Clearance: 54 Goal Trough: 15-20 mcg/mL Pharmacy Plan for Drug Dosing: Pharmacy Service will continue to monitor and adjust dosing as required. Follow-Up Labs: Trough Vancomycin Labs to be done on [date and time ordered]: 04/07/19 @1300
--- NOTE | 2019-04-06 03:15 | NURSING ---
Called [facility] and confirmed that they give pt Isosource 1.5 and run it at 55 cc/hr with a 55 cc water flush every hour. They start it at 2 pm and remove it at 10 am.
[2019-04-06 03:23] LABS: M R Staph aureus DNA By PCR POSITIVE (Negative); Probe Check PASS
[2019-04-06] MEDS: 0.9% Normal Saline 1,000 ML 100 ML IV (03:40)
[2019-04-06 03:45] LABS: Absolute Lymphocyte Count 2.37 X10^3/uL (0.83-4.51); Absolute Neutrophil Count 7.3 X10^3/uL (2.0-7.7); Basophil# 0.04 X10^3/uL; Basophil% 0.4 % (0-1); Eosinophil# 0.08 X10^3/uL; Eosinophils% 0.8 % (0-5); Hematocrit 49.7 % (37-47); Hemoglobin 15.5 g/dL (12.0-15.0); Lymphocyte # 2.37 X10^3/ul (4.0); Lymphocyte % 22.3 % (19-41); Mean Corp Hgb Conc 31.2 g/dL (32-36); Mean Corpuscular Hgb 32.5 pg (27.0-32.0); Mean Corpuscular Volume 104.2 fL (81-99); Mean Platelet Vol. 12.4 fl (6.2-12.0); Monocyte% 7.5 % (0-10); NRBC Flagged by Analyzer 0 % (0-5); Neutrophil # 7.31 X10^3/uL (2.7-7.7); Neutrophil % 68.5 % (47-70); Platelet Count 179 K/mm3 (150-450); RBC Distribution Width SD 54.3 fl (35.1-43.9); Red Blood Count 4.77 M/mm3 (4.2-5.4); White Blood Count 10.7 K/mm3 (4.4-11.0)
[2019-04-06 04:16] LABS: Anion Gap 6 (5-15); BUN 39 mg/dL (7-18); BUN/Creat Ratio 67.8 RATIO (10-20); Calcium,Total 8.2 mg/dL (8.5-10.1); Chloride 125 mmol/L (98-107); Creatinine, Serum 0.58 mg/dL (0.55-1.02); EST Glomerular Filtration Rate 111 mL/min (>60); Est Glom Filt Rate - Afr Amer 134 mL/min (>60); Estimated Creatinine Clearance 54.32 ml/min; Glucose 141 mg/dL (74-106); Potassium 4.3 mmol/L (3.5-5.1); Sodium Level 155 mmol/L (136-145)
--- NOTE | 2019-04-06 08:45 | PCM.PROGNOTE ---
Patient Problems: Active and Suspected Problems (Last Updated 04/18/18 @ 07:41 by Alex Rosenberg DO) Severe sepsis (Acute) Pneumonia (Acute) Subjective: Chief complaint: From after admission for healthcare associated pneumonia with severe sepsis. Patient seen and examined. No acute events overnight. Patient is nonverbal, not able to communicate. She had a history of anoxic brain injury and hydrocephalus in context of history of bacterial meningitis. She is not able to provide any history. This morning, she is afebrile, blood pressure 100 stable, pulse ox is 96% on 2 L of oxygen. - Physical Exam Vitals/I&O's: Vital Signs Temp Pulse Resp BP Pulse Ox 97.6 F L 88 20 H 120/77 96 04/06/19 01:32 04/06/19 08:41 04/06/19 01:32 04/06/19 01:32 04/06/19 01:32 Oxygen Flow Rate (L/min) 2 Oxygen Delivery Method Nasal Cannula Weight: 177 lb 11.081 oz Body Mass Index (BMI) 26.9 Intake and Output for Last 24 Hours 04/04/19 04/05/19 04/06/19 23:59 23:59 23:59 Intake Total 1000 / 1000 1395.0 / 1395.0 Output Total 200 / 200 Balance 1000 / 1000 1195.0 / 1195.0 General: Alert, Cooperative, - - Nonverbal, noncommunicating. HEENT: Atraumatic, PERRLA, EOMI, Normocephalic Oral: Moist Mucosa, No Gingival or Mucosal Lesions/ Ulcerations Neck: Supple, No JVD, Negative Carotid Bruits, Trachea Midline, Thyroid Normal Size and Texture Lungs: No wheeze, No rales, Diminished, Rhonchi, - - Occasional breath sounds bilaterally, more on the left base, scattered rhonchi. Cardiovascular: Regular rate, Regular Rhythm, Normal S1, Normal S2, PMI Normal Abdomen: Bowel Sounds Present, Soft, Non Tender, Non-Distended, No Hepato-splenomegaly, - - PEG tube in place. Extremities: No clubbing, No cyanosis, Edema - Trace edema. Skin: No rashes, No breakdown Lymphatic: No Cervical, Supraclavicular, or Inguinal Adenopathy Neurological: - - Nonverbal, not following commands. Bilateral upper and lower extremities contractures, chronic. Psych/Mental Status: Flat Affect, - - None verbal. Microbiology Past 72 Hours 04/05/19 21:50 Urine Catheter - Catheter Legionella Antigen - Final 04/05/19 21:50 Urine Catheter - Catheter Streptococcus pneumoniae Antigen (M - Final 04/05/19 21:19 Mucosa - Nose Influenza Types A,B Direct FA (CRYSTAL) - Final Laboratory Results 04/05/19 19:45: WBC 11.9 H, RBC 5.28, Hgb 17.1 H, Hct 54.5 H, MCV 103.2 H, MCH 32.4 H, MCHC 31.4 L, RDW Std Deviation 54.0 H, RDW Coeff of Tru 14.1, Plt Count 213, MPV 13.0 H, Immature Gran % (Auto) 0.400, Neut % (Auto) 67.2, Lymph % (Auto) 21.1, [place] % (Auto) 9.9, Eos % (Auto) 0.5, Baso % (Auto) 0.9, Absolute Neuts (auto) 8.0 H, Absolute Lymphs (auto) 2.51, Nucleated RBC % 0 04/05/19 19:45: PT 14.5, INR 1.2, APTT 27.2 04/05/19 19:45: Sodium 155 H, Potassium 4.4, Chloride 122 H, Carbon Dioxide 30.0, Anion Gap 3 L, BUN 39 H, Creatinine 0.77, Estim Creat Clear Calc 54.32, Est GFR (MDRD) Af Amer 95, Est GFR (MDRD) Non-Af 79, BUN/Creatinine Ratio 50.4 H, Glucose 112 H, Calcium 9.4, Total Bilirubin 0.80, AST 26, ALT 61 H, Alkaline Phosphatase 94, Total Protein 8.2, Albumin 3.7, Globulin 4.5 H, Albumin/Globulin Ratio 0.8 L 04/05/19 19:45: Lactic Acid 2.5 H* 04/05/19 21:50: Urine Color Yellow, Urine Clarity Clear, Urine pH 6.0, Ur Specific [place] 1.020, Urine Protein 30 H, Urine Glucose (UA) Normal, Urine Ketones 5 H, Urine Occult Blood 25 H, Urine Nitrite Negative, Urine Bilirubin Negative, Urine Urobilinogen 1 H, Ur Leukocyte Esterase 25 H, Urine RBC 0-5 SEEN, Urine WBC 0-5 SEEN, Ur Squamous Epith Cells 0-5 SEEN, Urine Bacteria 0 SEEN, Urine Mucus 1+ 04/06/19 01:42: MRSA (PCR) POSITIVE H 04/06/19 01:45: Lactic Acid Cancelled 04/06/19 03:40: Sodium 155 H, Potassium 4.3, Chloride 125 H, Carbon Dioxide 24.0, Anion Gap 6, BUN 39 H, Creatinine 0.58, Estim Creat Clear Calc 54.32, Est GFR (MDRD) Af Amer 134, Est GFR (MDRD) Non-Af 111, BUN/Creatinine Ratio 67.8 H, Glucose 141 H, Calcium 8.2 L 04/06/19 03:40: WBC 10.7, RBC 4.77, Hgb 15.5 H, Hct 49.7 H, MCV 104.2 H, MCH 32.5 H, MCHC 31.2 L, RDW Std Deviation 54.3 H, RDW Coeff of Tru 14.0, Plt Count 179, MPV 12.4 H, Immature Gran % (Auto) 0.500, Neut % (Auto) 68.5, Lymph % (Auto) 22.3, [place] % (Auto) 7.5, Eos % (Auto) 0.8, Baso % (Auto) 0.4, Absolute Neuts (auto) 7.3, Absolute Lymphs (auto) 2.37, Nucleated RBC % 0 04/06/19 03:40: Lactic Acid 2.0 Clinical Impression(s) from Imaging Studies Chest X-Ray 04/05/19 21:05 IMPRESSION: New left lower lobe airspace disease obscuring left heart border and the left hemidiaphragm possibly due to left lower lobe pneumonia and possibly left basilar atelectasis with probable small left pleural effusion. at 2142 Reported and signed by: Vamshi Hancock MD Electronically Signed: Vamshi Hancock MD at 21:41 EST Tel , Service support , Current Medications Acetaminophen (Tylenol) 650 mg RECTAL Q4H PRN PRN PRN Reason: Pain Score 1-10/Temp > 100.7 F Albuterol Sulfate (Ventolin Aerosols) 2.5 mg INHALATION Q2H PRN PRN PRN Reason: Shortness of Breath/Wheezing Enoxaparin Sodium (Lovenox) 40 mg SC DAILY LB Glucagon () 1 mg IM .X1 PRN PRN Reason: Hypoglycemia Vancomycin IV Pharmacy to Dose (1,250 ea/ Sodium Chloride) 500 mls @ 250 mls/hr IV PRN PRN; Protocol Meropenem 1 gm/ Sodium (Chloride) 120 mls @ 33 mls/hr IV Q8 LB Last Admin: 04/06/19 05:49 Dose: 33 mls/hr Documented by: Dextrose (Dextrose 10%-Water) 250 mls @ 999 mls/hr IV .Q16M PRN; Protocol PRN Reason: HYPOGLYCEMIA Vancomycin HCl 750 mg/ Sodium (Chloride) 265 mls @ 250 mls/hr IV Q12H LB Nutritional Formula (Osmolite 1.2) 1,000 mls @ 55 mls/hr GT .[id number] LB Sodium Chloride () 1,000 mls @ 100 mls/hr IV .Q10H LB Multivitamins/Minerals (Multivitamin With Minerals) 1 tablet GT DAILYCM LB Ondansetron HCl (Zofran) 4 mg IV Q8H PRN PRN PRN Reason: NAUSEA/VOMITING Polyethylene Glycol (Miralax) 17 gm PO QHS LB Sodium Chloride () 10 - 40 ml IV UD PRN PRN Reason: SALINE FLUSH Medical Necessity - Tobacco Use Smoking Status: Smoker, status unknown Assessment/Plan All Active Problems (Last Updated 04/18/18 @ 07:41 by Alex Rosenberg DO) Severe sepsis (Acute) Pneumonia (Acute) This is a 68 years old female patient presented to the emergency room from the senior care because of fever and she was found to have severe sepsis secondary to left lower lobe healthcare associated pneumonia. #1 lower left lower lobe healthcare associated pneumonia/severe sepsis: She is on IV meropenem and vancomycin. This morning, she has been afebrile, WBC is back to normal. Her vital signs are stable, pulse ox is maintained on 2 L. Pneumococcal and Legionella antigen were negative. Nasal swab for influenza a and B were negative. Blood and urine cultures are pending. Plan to continue same treatment, repeat CBC and BMP tomorrow morning. #2 hypernatremia/dehydration: Likely due to poor intake. Hemoglobin was elevated, hemoconcentration and BUN was 39. Serum creatinine was normal. She is on IV fluids. Serum sodium today remained the same. She is on tube feeds. Plan: Change IV fluids to 0.45% saline, repeat BMP tomorrow morning. #3 history of anoxic brain injury/hydrocephalus: Stable, supportive care. #4 status post PEG tube: She is on tube feeds, tolerated. 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 #6 DVT prophylaxis: Subcu Lovenox. This note was generated with [employer] dictation software. It may contain incorrect words, spelling, and punctuation that were not noted in checking the note before signing. Code Visit Inpatient E&M: 92716 Subs Hosp L2
[2019-04-06] MEDS: 0.45% Normal Saline 1,000 ML 100 ML IV ×2 (09:22→21:08)
[2019-04-06] MEDS: Multivitamins,Ther W-Minerals Tablet 1 TABLET GT (09:23)
[2019-04-06] MEDS: Enoxaparin 40 MG/0.4 ML Syringe SC (09:23)
[2019-04-06] MEDS: Albuterol 2.5 MG/3 ML VIAL.NEB. INHALATION ×2 (15:04→19:52)
[2019-04-06] MEDS: Jevity 1.5 1,000 ML 55 ML GT (15:54)
--- NOTE | 2019-04-06 16:10 | CPS ---
pt unable to follow comands and do PEP.
[2019-04-06] MEDS: Polyethylene Glycol 3350 17 GM PACKET PO (21:10)
[2019-04-07] VITALS (12 sets, daily range): BP systolic 125–153; BP diastolic 57–68; PULSE 56–88; RESP 18–20; TEMP 36.6–37; O2SAT 94–99
[2019-04-07] MEDS: Albuterol 2.5 MG/3 ML VIAL.NEB. INHALATION ×4 (01:12→19:25)
[2019-04-07 06:49] LABS: Absolute Lymphocyte Count 1.33 X10^3/uL (0.83-4.51); Absolute Neutrophil Count 4.3 X10^3/uL (2.0-7.7); Basophil# 0.02 X10^3/uL; Basophil% 0.3 % (0-1); Eosinophil# 0.23 X10^3/uL; Eosinophils% 3.6 % (0-5); Hematocrit 39.9 % (37-47); Hemoglobin 12.1 g/dL (12.0-15.0); Lymphocyte # 1.33 X10^3/ul (4.0); Mean Corp Hgb Conc 30.3 g/dL (32-36); Mean Corpuscular Hgb 31.8 pg (27.0-32.0); Mean Corpuscular Volume 104.7 fL (81-99); Mean Platelet Vol. 12.9 fl (6.2-12.0); Monocyte# 0.44 X10^3/uL; Monocyte% 6.9 % (0-10); NRBC Flagged by Analyzer 0 % (0-5); Neutrophil % 67.9 % (47-70); Platelet Count 107 K/mm3 (150-450); RBC Distribution Width CV 14.1 % (11.6-14.6); RBC Distribution Width SD 54.3 fl (35.1-43.9); Red Blood Count 3.81 M/mm3 (4.2-5.4); White Blood Count 6.3 K/mm3 (4.4-11.0)
[2019-04-07 07:01] LABS: Anion Gap 3 (5-15); BUN 30 mg/dL (7-18); BUN/Creat Ratio 72.3 RATIO (10-20); Calcium,Total 7.8 mg/dL (8.5-10.1); Chloride 123 mmol/L (98-107); Creatinine, Serum 0.42 mg/dL (0.55-1.02); EST Glomerular Filtration Rate 161 mL/min (>60); Est Glom Filt Rate - Afr Amer 195 mL/min (>60); Estimated Creatinine Clearance 54.32 ml/min; Glucose 129 mg/dL (74-106); Potassium 3.4 mmol/L (3.5-5.1); Sodium Level 151 mmol/L (136-145)
[2019-04-07] MEDS: Multivitamins,Ther W-Minerals Tablet 1 TABLET GT (08:12)
[2019-04-07] MEDS: Enoxaparin 40 MG/0.4 ML Syringe SC (08:20)
[2019-04-07] MEDS: Menthol/Lanolin/Calamine/Znox 113 GM Tube 1 APPLIC TOPICAL ×2 (08:20→21:56)
--- NOTE | 2019-04-07 08:29 | PCM.PROGNOTE ---
Patient Problems: Active and Suspected Problems (Last Updated 04/18/18 @ 07:41 by Alex Rosenberg DO) Severe sepsis (Acute) Pneumonia (Acute) Subjective: Chief complaint: From after admission for healthcare associated pneumonia with severe sepsis. Patient seen and examined. No acute events overnight. Nursing staff reported that patient has been doing okay, tolerating tube feeds. She has been afebrile, blood pressure stable, she is requiring up to 3 L of oxygen. Patient is nonverbal. - Physical Exam Vitals/I&O's: Vital Signs Temp Pulse Resp BP Pulse Ox 97.9 F 56 L 19 H 153/57 H 94 04/07/19 07:57 04/07/19 07:57 04/07/19 07:57 04/07/19 07:57 04/07/19 07:57 Oxygen Flow Rate (L/min) 3 Oxygen Delivery Method Room Air Weight: 177 lb 11.081 oz Body Mass Index (BMI) 26.9 Intake and Output for Last 24 Hours 04/05/19 04/06/19 04/07/19 23:59 23:59 23:59 Intake Total 1000 / 1000 3723.33 / 4684.33 2988.33 / 2988.33 Output Total 950 / 1125 375 / 375 Balance 1000 / 1000 2773.33 / 3559.33 2613.33 / 2613.33 General: - - Nonverbal, arousable to verbal stimuli. Mildly short of breath. HEENT: Atraumatic, PERRLA, EOMI, Normocephalic Oral: Moist Mucosa, No Gingival or Mucosal Lesions/ Ulcerations Neck: Supple, No JVD, Negative Carotid Bruits, Trachea Midline, Thyroid Normal Size and Texture Lungs: No rales, Diminished, Rhonchi, Short of Breath, - - Decreased breath sounds bilateral, more at the bases, scattered rhonchi. Cardiovascular: Regular rate, Regular Rhythm, Normal S1, Normal S2, PMI Normal Abdomen: Bowel Sounds Present, Soft, Non Tender, Non-Distended, No Hepato-splenomegaly, - - PEG tube in place. Extremities: No clubbing, No cyanosis, Edema Skin: No rashes, No breakdown Musculoskeletal: No Tenderness to Palpation of Joints or Extremities Lymphatic: No Cervical, Supraclavicular, or Inguinal Adenopathy Neurological: Cranial nerves II-XII grossly intact, - - Nonverbal, not following commands. Extremities chronic contractures. Psych/Mental Status: Flat Affect, - - Nonverbal Microbiology Past 72 Hours 04/05/19 21:50 Urine Catheter - Catheter Legionella Antigen - Final 04/05/19 21:50 Urine Catheter - Catheter Streptococcus pneumoniae Antigen (M - Final 04/05/19 21:19 Mucosa - Nose Influenza Types A,B Direct FA (CRYSTAL) - Final Laboratory Results 04/07/19 05:26: WBC 6.3, RBC 3.81 L, Hgb 12.1, Hct 39.9, MCV 104.7 H, MCH 31.8, MCHC 30.3 L, RDW Std Deviation 54.3 H, RDW Coeff of Tru 14.1, Plt Count 107 L, MPV 12.9 H, Immature Gran % (Auto) 0.300, Neut % (Auto) 67.9, Lymph % (Auto) 21.0, [place] % (Auto) 6.9, Eos % (Auto) 3.6, Baso % (Auto) 0.3, Absolute Neuts (auto) 4.3, Absolute Lymphs (auto) 1.33, Nucleated RBC % 0 04/07/19 05:26: Sodium 151 H, Potassium 3.4 L, Chloride 123 H, Carbon Dioxide 25.0, Anion Gap 3 L, BUN 30 H, Creatinine 0.42 L, Estim Creat Clear Calc 54.32, Est GFR (MDRD) Af Amer 195, Est GFR (MDRD) Non-Af 161, BUN/Creatinine Ratio 72.3 H, Glucose 129 H, Calcium 7.8 L Current Medications Acetaminophen (Tylenol) 650 mg RECTAL Q4H PRN PRN PRN Reason: Pain Score 1-10/Temp > 100.7 F Albuterol Sulfate (Ventolin Aerosols) 2.5 mg INHALATION Q6H.RT LB Last Admin: 04/07/19 07:02 Dose: 2.5 mg Documented by: Calamine/Phenol (Calmoseptine Ointment) 1 applic TOPICAL BID LB; Protocol Last Admin: 04/07/19 08:20 Dose: 1 applicatio Documented by: Enoxaparin Sodium (Lovenox) 40 mg SC DAILY [facility] Last Admin: 04/07/19 08:20 Dose: 40 mg Documented by: Glucagon () 1 mg IM .X1 PRN PRN Reason: Hypoglycemia Vancomycin IV Pharmacy to Dose (1,250 ea/ Sodium Chloride) 500 mls @ 250 mls/hr IV PRN PRN; Protocol Meropenem 1 gm/ Sodium (Chloride) 120 mls @ 33 mls/hr IV Q8 [facility] Last Admin: 04/07/19 05:38 Dose: 33 mls/hr Documented by: Vancomycin HCl 750 mg/ Sodium (Chloride) 265 mls @ 250 mls/hr IV Q12H [facility] Last Infusion: 04/07/19 02:29 Dose: Infused Documented by: Enteral Nutritional Formula ([place] 1.5) 1,000 mls @ 55 mls/hr GT .[id number] [facility] Last Admin: 04/07/19 08:13 Dose: Not Given Documented by: Multivitamins/Minerals (Multivitamin With Minerals) 1 tablet GT DAILYCM [facility] Last Admin: 04/07/19 08:12 Dose: 1 tablet Documented by: Ondansetron HCl (Zofran) 4 mg IV Q8H PRN PRN PRN Reason: NAUSEA/VOMITING Polyethylene Glycol (Miralax) 17 gm PO QHS [facility] Last Admin: 04/06/19 21:10 Dose: 17 gm Documented by: Sodium Chloride () 10 - 40 ml IV UD PRN PRN Reason: SALINE FLUSH Medical Necessity - Tobacco Use Smoking Status: Smoker, status unknown Assessment/Plan All Active Problems (Last Updated 04/18/18 @ 07:41 by Alex Rosenberg DO) Severe sepsis (Acute) Pneumonia (Acute) This is a 68 years old female patient [facility] because of fever and she was found to have severe sepsis secondary to left lower lobe healthcare associated pneumonia. #1 lower left lower lobe healthcare associated pneumonia/severe sepsis: Remained on IV meropenem and vancomycin. She has been afebrile, leukocytosis resolved. Her vital signs are stable, pulse ox is maintained on 3 L. Pneumococcal and Legionella antigen were negative. Nasal swab for influenza a and B were negative. Blood and urine cultures are pending. Plan to continue same treatment, follow cultures, chest physiotherapy, PT OT. #2 hypernatremia/dehydration: Likely due to poor intake. She is on half-normal saline. Hemoglobin is back to normal, sodium is improving and coming down. BUN is also improving. Potassium today is 3.4. Plan to decrease IV fluids down to 60 cc/h, replace potassium with potassium chloride solution through the G-tube, repeat BMP tomorrow morning. #3 history of anoxic brain injury/hydrocephalus: Stable, supportive care. #4 status post PEG tube: She is on tube feeds, tolerated. 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 #6 DVT prophylaxis: Subcu Lovenox. This note was generated with [employer] dictation software. It may contain incorrect words, spelling, and punctuation that were not noted in checking the note before signing. Code Visit Inpatient E&M: 58738 Subs Hosp L2
[2019-04-07 13:51] LABS: Vancomycin, Trough Level 10.8 ug/mL (5.0-15.0)
[2019-04-07] MEDS: Jevity 1.5 1,000 ML 55 ML GT (13:54)
--- NOTE | 2019-04-07 14:37 | PCM.RX.CS ---
Consult Pharmacy has been consulted to manage selected antiobiotic: Vancomycin Type of Consult: Follow-up Suspected Infection: Pneumonia Prior Doses of Antibiotics Received/Current Regimen: VANCOMYCIN 750MG IV 04/07 @ 0125 Labs: Sodium 151 mmol/L (136-145) H 04/07/19 05:26 Potassium 3.4 mmol/L (3.5-5.1) L 04/07/19 05:26 Chloride 123 mmol/L (98-107) H 04/07/19 05:26 Carbon Dioxide 25.0 mmol/L (21.0-32.0) 04/07/19 05:26 Anion Gap 3 (5-15) L 04/07/19 05:26 BUN 30 mg/dL (7-18) H 04/07/19 05:26 Creatinine 0.42 mg/dL (0.55-1.02) L 04/07/19 05:26 Est GFR (MDRD) Af Amer 195 mL/min (>60) 04/07/19 05:26 Est GFR (MDRD) Non-Af 161 mL/min (>60) 04/07/19 05:26 BUN/Creatinine Ratio 72.3 RATIO (10-20) H 04/07/19 05:26 Glucose 129 mg/dL (74-106) H 04/07/19 05:26 Vancomycin Trough 10.8 ug/mL (5.0-15.0) 04/07/19 13:13 Microbiology: Microbiology 04/05/19 21:50 Urine Catheter - Catheter Urine Culture - Preliminary Culture exhibits no growth. 04/05/19 21:50 Urine Catheter - Catheter Legionella Antigen - Final 04/05/19 21:50 Urine Catheter - Catheter Streptococcus pneumoniae Antigen (M - Final 04/05/19 21:19 Mucosa - Nose Influenza Types A,B Direct FA (CRYSTAL) - Final Weight used for dosin.6 kg Estimated Creatinine Clearance: 54.32 Goal Trough: 15-20 mcg/mL Pharmacy Plan for Drug Dosin. 12 hour trough was subtherapeutic at 10.8 mg/dL 2. Will increase dose to 1000mg Q12H starting 04/08 @ 0200 (750mg bag already hung at 1351) 3. Trough ordered prior to the 4th dose 3. Pharmacy Service will continue to monitor and adjust dosing as required. Labs to be done on [date and time ordered]: 04/09/2019 @ 2713
[2019-04-07] MEDS: 0.9% Saline Lock 10 ML Syringe IV (21:56)
[2019-04-07] MEDS: Polyethylene Glycol 3350 17 GM PACKET PO (22:12)
[2019-04-08] VITALS (9 sets, daily range): BP systolic 106–157; BP diastolic 46–64; PULSE 87–100; RESP 18–24; TEMP 36.4–37.3; O2SAT 96–98
[2019-04-08] MEDS: Albuterol 2.5 MG/3 ML VIAL.NEB. INHALATION ×4 (01:30→19:40)
[2019-04-08] MEDS: Vancomycin IV 1,000 MG/200 ML BAG 200 MG IV ×2 (01:57→13:03)
[2019-04-08 06:07] LABS: Anion Gap 4 (5-15); BUN 18 mg/dL (7-18); BUN/Creat Ratio 45.2 RATIO (10-20); Calcium,Total 7.9 mg/dL (8.5-10.1); Chloride 115 mmol/L (98-107); EST Glomerular Filtration Rate 169 mL/min (>60); Est Glom Filt Rate - Afr Amer 205 mL/min (>60); Estimated Creatinine Clearance 54.32 ml/min; Glucose 127 mg/dL (74-106); Potassium 3.8 mmol/L (3.5-5.1); Sodium Level 143 mmol/L (136-145)
--- NOTE | 2019-04-08 07:40 | PN_ITS ---
Patient Problems: Active and Suspected Problems (Last Updated 04/18/18 @ 07:41 by Alex Rosenberg DO) Severe sepsis (Acute) Pneumonia (Acute) Subjective: Patient with no acute events overnight with only noted low-grade temperature but has been afebrile for the last greater than 24 hours, tolerating tube feeds, no signs of remained stable. Discussed patient with her family and noted clinical improvement, plan to continue IV antibiotic therapy for 1 additional day and potentially de-escalate to Omnicef and doxycycline but unclear source and noted intention for attempt to obtain sputum culture per respiratory therapy as well as respiratory viral panel. Patient with no obvious evidence of chills, nausea, emesis, abdominal pain, chest pain or dyspnea. Objective: Physical Examination: General: awake, alert, nonverbal, not able to follow commands, seated upright in the medical surgical bed in no apparent distress. Skin: normal color, turgor, no icterus, cyanosis. HEENT: AT/NC, EOMI, PERRLA, mildly dry MM. Lungs: Diminished breath sounds throughout, greater bases, mildly rhonchorous, no obvious wheezing, no rales. Heart: Regular rate and rhythm; no gallop, rub audible. Abdomen: soft, overweight, NTTP, ND, normal BS. Extremities: no cyanosis, clubbing, contractures present upper and lower extremity. Neurological: patient awake, alert, nonverbal, not following commands; pupils equally reactive to light and accomodation; cranial nerves go to assess given nonverbal noninteractive status, difficult to assess extremity movement but does pull to upper extremity pain, contractures present in lower, strength severely global decrease secondary to acute presentation and underlying comorbidities. Psychiatric: affect appears flat, no acute evidence of depressive or anxiety feelings. Vitals/I&O's: Vital Signs Temp Pulse Resp BP Pulse Ox 99.2 F H 97 22 H 137/59 H 98 04/08/19 03:43 04/08/19 07:04 04/08/19 07:04 04/08/19 03:43 04/08/19 03:59 Oxygen Flow Rate (L/min) 3 Oxygen Delivery Method Room Air Weight: 177 lb 11.081 oz Body Mass Index (BMI) 26.9 Intake and Output for Last 24 Hours 04/06/19 04/07/19 04/08/19 23:59 23:59 23:59 Intake Total 3723.33 / 4684.33 4680.33 / 5341.33 1683 / 1683 Output Total 950 / 1125 775 / 1225 750 / 750 Balance 2773.33 / 3559.33 3905.33 / 4116.33 933 / 933 Microbiology Past 72 Hours 04/05/19 20:10 Blood Culture (Wb) - Right Wrist Blood Culture - Preliminary No growth in 48 hours. 04/05/19 19:45 Blood Culture (Wb) - Left Forearm Blood Culture - Preliminary No growth in 48 hours. 04/05/19 21:50 Urine Catheter - Catheter Urine Culture - Preliminary Culture exhibits no growth. 04/05/19 21:50 Urine Catheter - Catheter Legionella Antigen - Final 04/05/19 21:50 Urine Catheter - Catheter Streptococcus pneumoniae Antigen (M - Final 04/05/19 21:19 Mucosa - Nose Influenza Types A,B Direct FA (CRYSTAL) - Final Laboratory Results 04/07/19 13:13: Vancomycin Trough 10.8 04/08/19 05:24: Sodium 143, Potassium 3.8, Chloride 115 H, Carbon Dioxide 24.0, Anion Gap 4 L, BUN 18, Creatinine 0.40 L, Estim Creat Clear Calc 54.32, Est GFR (MDRD) Af Amer 205, Est GFR (MDRD) Non-Af 169, BUN/Creatinine Ratio 45.2 H, Glucose 127 H, Calcium 7.9 L Current Medications Acetaminophen (Tylenol) 650 mg RECTAL Q4H PRN PRN PRN Reason: Pain Score 1-10/Temp > 100.7 F Albuterol Sulfate (Ventolin Aerosols) 2.5 mg INHALATION Q6H.RT [facility] Last Admin: 04/08/19 07:04 Dose: 2.5 mg Documented by: Calamine/Phenol (Calmoseptine Ointment) 1 applic TOPICAL BID LB; Protocol Last Admin: 04/07/19 21:56 Dose: 1 applicatio Documented by: Enoxaparin Sodium (Lovenox) 40 mg SC DAILY [facility] Last Admin: 04/07/19 08:20 Dose: 40 mg Documented by: Glucagon () 1 mg IM .X1 PRN PRN Reason: Hypoglycemia Vancomycin IV Pharmacy to Dose (1,250 ea/ Sodium Chloride) 500 mls @ 250 mls/hr IV PRN PRN; Protocol Meropenem 1 gm/ Sodium (Chloride) 120 mls @ 33 mls/hr IV Q8 [facility] Last Admin: 04/08/19 05:22 Dose: 33 mls/hr Documented by: Enteral Nutritional Formula (Jevity 1.5) 1,100 mls @ 55 mls/hr GT DAILY@1400 [facility] Last Admin: 04/07/19 13:54 Dose: 55 mls/hr Documented by: Vancomycin HCl (Vancomycin) 1,000 mg in 200 mls @ 200 mls/hr IV Q12H [facility] Last Infusion: 04/08/19 02:57 Dose: Infused Documented by: Multivitamins/Minerals (Multivitamin With Minerals) 1 tablet GT DAILYCM [facility] Last Admin: 04/07/19 08:12 Dose: 1 tablet Documented by: Nystatin (Mycostatin Powder) 1 applic TOPICAL BID [facility]; Protocol Ondansetron HCl (Zofran) 4 mg IV Q8H PRN PRN PRN Reason: NAUSEA/VOMITING Polyethylene Glycol (Miralax) 17 gm PO QHS [facility] Last Admin: 04/07/19 22:12 Dose: 17 gm Documented by: Sodium Chloride () 10 - 40 ml IV UD PRN PRN Reason: SALINE FLUSH Last Admin: 04/07/19 21:56 Dose: 10 ml Documented by: STROKE Vital Signs/Narrative: Vital Signs Temp Pulse Resp BP Pulse Ox 04/08/19 07:04 97 22 H 04/08/19 03:59 20 H 98 04/08/19 03:43 99.2 F H 97 20 H 137/59 H 98 Medical Necessity - Tobacco Use Smoking Status: Smoker, status unknown Assessment/Plan All Active Problems (Last Updated 04/18/18 @ 07:41 by Alex Rosenberg DO) Severe sepsis (Acute) Pneumonia (Acute) The patient is a 68 y/o F w/ PMHx: Hx Anoxic Brain Injury w/ chronic nonverbal status, Hydrocephalus s/p shunt, GERD, Chronic dysphagia s/p PEG, Chronic normocytic anemia who presents from SNF to the [facility] ED on 04/05/19 with history of onset fevers, tachypnea, tachycardia. 1. Acute Severe Sepsis secondary to LLL P Pneumonia: CXR in the ED w/ new left lower lobe airspace disease obscuring the left heart border in the left hemidiaphragm suspicious for left lower lobe pneumonia and possibly left basilar atelectasis with probable small left pleural effusion, admission CBC w/ WBC 11.9 with L shift, HR 115, RR 32 upon ED presentation. Will admit to the MS, maintain on oxygen with wean as tolerated to room air, continue ATC duonebs, PRN albuterol, maintained on IV Merrem and Vancomycin, UCx unremarkable, negative legionella and strep urine antigens, Bld Cx x 48 hours unremarkable, negative rapid influenza, HOB, IS parameters w/ negative urine antigens, will discuss with RT and attempt to obtain sputum cx, maintain on chest physiotherapy, requested respiratory viral panel. If clinically remains improved would consider transition to doxycycline and Omnicef via G-tube. 2. Hx Anoxic Brain Injury w/ Hydrocephalus: Patient w/ chronic nonverbal status w/ hydrocephalus s/p shunt, spastic quadriplegia/chronic contractures of all extremities, maintain on fall and aspiration precautions, therapies ongoing. 3. Chronic dysphagia: s/p PEG, continued on Jevity tube feeds. 4. GERD: Maintain on famotidine. 5. DVT Prophylaxis: SCDs, lovenox. 6. CODE STATUS: DNR CC-A, no intubation. Code Visit Inpatient E&M: 98987 Subs Hosp L2
[2019-04-08] MEDS: Multivitamins,Ther W-Minerals Tablet 1 TABLET GT (09:30)
[2019-04-08] MEDS: Famotidine 20 MG Tablet GT ×2 (09:30→21:15)
[2019-04-08] MEDS: Enoxaparin 40 MG/0.4 ML Syringe SC (09:31)
[2019-04-08] MEDS: Menthol/Lanolin/Calamine/Znox 113 GM Tube 1 APPLIC TOPICAL ×2 (09:31→21:16)
[2019-04-08] MEDS: Nystatin Powder 15gm Bottle 1 APPLIC TOPICAL ×2 (09:34→21:16)
--- NOTE | 2019-04-08 10:48 | CASEMGMT ---
Social Work Note Pt is listed as being from [facility]. SOPHIA placed a call to Marga at [facility]. 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 Per previous visits, pt has a guardian and her guardian is pt's sister Elaine. SOPHIA placed a call to Elaine. Elaine confirms pt is from [facility] and the plan is for pt to return. SOPHIA faxed clinicals to [facility]. Plan: Return to [facility] once medically cleared Caitlyn Dunbar MONOTYPER, MACHINE HEEL SEAT LASTER
[2019-04-08] MEDS: Jevity 1.5 1,000 ML 55 ML GT (14:59)
[2019-04-08] MEDS: 0.9% Saline Lock 10 ML Syringe IV (21:18)
[2019-04-09] MEDS: Vancomycin IV 1,000 MG/200 ML BAG 200 MG IV (01:44)
[2019-04-09 01:58] VITALS: BP 121/59; PULSE 87; RESP 18; TEMP 36.7; O2SAT 100
[2019-04-09 06:20] LABS: Absolute Lymphocyte Count 1.03 X10^3/uL (0.83-4.51); Absolute Neutrophil Count 2.8 X10^3/uL (2.0-7.7); Basophil# 0.02 X10^3/uL; Basophil% 0.4 % (0-1); Eosinophils% 4.4 % (0-5); Hematocrit 41.4 % (37-47); Hemoglobin 12.9 g/dL (12.0-15.0); Lymphocyte # 1.03 X10^3/ul (4.0); Lymphocyte % 22.6 % (19-41); Mean Corp Hgb Conc 31.2 g/dL (32-36); Mean Corpuscular Hgb 31.5 pg (27.0-32.0); Mean Platelet Vol. 12.9 fl (6.2-12.0); NRBC Flagged by Analyzer 0 % (0-5); Neutrophil # 2.77 X10^3/uL (2.7-7.7); Neutrophil % 60.9 % (47-70); Platelet Count 111 K/mm3 (150-450); RBC Distribution Width CV 13.9 % (11.6-14.6); RBC Distribution Width SD 51.2 fl (35.1-43.9); White Blood Count 4.6 K/mm3 (4.4-11.0)
--- NOTE | 2019-04-09 06:22 | TREXTCAR_ITS ---
- Diet 04/06/19 01:15 Diet: Nothing Per Oral 1) Pt is currently on Isosource 1.5 at [facility]-->Rec formula change to comparable product Jevity 1.5 via PEG- 55 ml/hour w/ 55 ml H2O flush every hour to provide 1980 calories, 84.2 g protein, 2323 ml free fluid per day. Will meet ~100% of pt estimated nutritional needs. - Routine Orders/Code Status Enema Type: Fleetz Enema Frequency: Daily PRN Suppository Type: Dulcolax 10mg Suppository Frequency: Daily PRN O2 Frequency: PRN Keep PO Greater than or Equal to (%): 92 Routine Lab Work: - - Repeat CBC, BMP in 1 weeks. Code Status: [facility] - Wound(s) left watkins Wound Type: scab right elbow Wound Type: Abrasion - Suggestions for Active Care Change Position every (hours): 2 Hours to sit in a chair: 6 Times a day to sit in chair: 3 - Therapies Physical Therapy: Eval and Treat Occupational Therapy: Eval and Treat Speech Therapy: Eval and Treat - Problem/Diagnosis (1) Pneumonia Status: Acute Current Visit: Yes (2) Severe sepsis Status: Acute Current Visit: Yes (3) Anoxic brain injury Status: Chronic Current Visit: Yes (4) Hydrocephalus Status: Chronic Current Visit: Yes (5) GERD (gastroesophageal reflux disease) Status: Chronic Current Visit: Yes - Allergies/Procedures Done in Hospital Allergies/Adverse Reactions: Allergies ampicillin Allergy (Verified 09/14/17 01:56) Unknown levofloxacin Allergy (Verified 09/14/17 01:56) Unknown Penicillins Allergy (Verified 09/14/17 01:56) Unknown piperacillin Allergy (Verified 09/14/17 01:56) Unknown Quinolones Allergy (Verified 09/14/17 01:56) Unknown rifampin Allergy (Verified 09/14/17 01:56) Unknown streptomycin Allergy (Verified 09/14/17 01:56) Unknown tazobactam Allergy (Verified 09/14/17 01:56) Unknown Procedures: None - Type of Care/Length of Stay Estimated LOS: More Than 30 Days Type of Care Needed: Skilled Rehab Potential: Fair Prognosis: Fair - Additional Orders/Day of Discharge Additional Orders: (1) Fall and aspiration precautions. (2) Routine mouth and PEG care. (3) Aggressive q 2 hour position changes and barrier cream usage. ( 4) Complete antibiotic therapy H&P will serve as current which was dated: 04/05/19 Day of Discharge: 04/09/19 - Dietary and Speech Recommendations Dietitian Recommendations/Changes: 1) Pt is currently on Isosource 1.5 at [facility]. Rec formula change to comparable product Jevity 1.5 via PEG- 55 ml/hour w/ 55 ml H2O flush every hour to provide 1980 calories, 84.2 g protein, 2323 ml free fluid per day. Will meet ~100% of pt estimated nutritional needs. - Follow Up Care Primary Care Physician: Raman Gomez III, MD [Primary Care Provider] - Please follow up with your Primary Care Physician in: Follow-up within 3-5 days of discharge to review admission.
--- NOTE | 2019-04-09 06:30 | PCM.DC.SUM ---
Discharge Date and Diagnosis - Problem List Patient Problems: Active and Suspected Problems (Last Updated 04/18/18 @ 07:41 by Alex Rosenberg DO) Severe sepsis (Acute) Pneumonia (Acute) Date of Admission: 04/05/19 Date of Discharge: 04/09/19 - Primary Discharge Diagnosis Active and Suspected Problems (Last Updated 04/18/18 @ 07:41 by Alex Rosenberg DO) 1. Acute Severe Sepsis secondary to LLL P Pneumonia, Unclear organism 2. Hx Anoxic Brain Injury w/ Hydrocephalus 3. Chronic dysphagia s/p PEG, chronic Jevity tube feeds. 4. GERD 5. CODE STATUS: DNR CC-A, no intubation. - Secondary Discharge Diagnosis Chronic Problems (Last Updated 04/18/18 @ 07:41 by Alex Rosenberg DO) Anoxic brain injury (Chronic) Hydrocephalus (Chronic) GERD (gastroesophageal reflux disease) (Chronic) Hospital Course and Treatment Operations: None Procedures: None Summary of Care Provided: The patient is a 68 y/o F w/ PMHx: Hx Anoxic Brain Injury w/ chronic nonverbal status, Hydrocephalus s/p shunt, GERD, Chronic dysphagia s/p PEG, Chronic normocytic anemia who presented from SNF to the [facility] ED on 04/05/19 with history of onset fevers, tachypnea, tachycardia. CXR in the ED w/ new left lower lobe airspace disease obscuring the left heart border in the left hemidiaphragm suspicious for left lower lobe pneumonia and possibly left basilar atelectasis with probable small left pleural effusion, admission CBC w/ WBC 11.9 with L shift, HR 115, RR 32 upon ED presentation. Admitted to the NE, maintained on oxygen with wean as tolerated to room air, continued ATC duonebs, PRN albuterol, maintained on IV Merrem and Vancomycin, UCx unremarkable, negative legionella and strep urine antigens, Bld Cx x 48 hours unremarkable, negative rapid influenza and negative respiratory viral panel, HOB, IS parameters w/ negative urine antigens, unable to obtain sputum cx unfortunately, but clincially improved. Patient given allergy history with prior history of MRSA, transitioned to PEG doxycycline and Omnicef. Patient discharged to SNF in stable, improved condition with follow-up with her PCP within 3-5 days. DAY OF DISCHARGE PROGRESS NOTE: Subjective: Patient without acute event overnight per nursing report. Patient without any evidence of fever, chills, nausea, emesis, abdominal pain, chest pain or dyspnea. Patient tolerating tube feeds. Patient remains nonverbal with significant anoxic brain injury history as noted. Patient family member was contacted the day prior and amenable to plan of transition patient back to her skilled facility given clinical improvement today. Patient will be discharged with follow-up with primary care physician within 3-5 days to review her current admission. Objective: T 98.4, heart rate 67, BP 111/65, respiratory rate 20, 100% on room air. Physical Examination: General: awake, alert, nonverbal, not able to follow commands, seated upright in the MS bed in no apparent distress. Skin: normal color, turgor, no icterus, cyanosis. HEENT: AT/NC, EOMI, PERRLA, improved less dry MM. Lungs: Diminished breath sounds throughout, but improved from prior, greater bases, less rhonchorous, no wheezing, no rales. Heart: Regular rate and rhythm; no gallop, rub audible. Abdomen: soft, overweight, GT in place, NTTP, ND, normal BS. Extremities: no cyanosis, clubbing, contractures present upper and lower extremity. Neurological: patient awake, alert, nonverbal, not following commands; pupils equally reactive to light and accomodation; cranial nerves go to assess given nonverbal noninteractive status, difficult to assess extremity movement but does pull to upper extremity pain, contractures present in lower, strength severely global decrease secondary to acute presentation and underlying comorbidities. Psychiatric: affect appears still mildly flat, no acute evidence of depressive or anxiety feelings. Assessment and Plan: Please see hospital summary above. Patient Problems: Active and Suspected Problems (Last Updated 04/18/18 @ 07:41 by Alex Rosenberg DO) Severe sepsis (Acute) Pneumonia (Acute) - Physical Exam Vitals/I&O's: Vital Signs Temp Pulse Resp BP Pulse Ox 98.1 F 87 18 121/59 H 100 04/09/19 01:58 04/09/19 01:58 04/09/19 01:58 04/09/19 01:58 04/09/19 01:58 Oxygen Flow Rate (L/min) 3 Oxygen Delivery Method Room Air Weight: 177 lb 11.081 oz Body Mass Index (BMI) 26.9 Intake and Output for Last 24 Hours 01/04/08/19 04/09/19 23:59 23:59 23:59 Intake Total 4680.33 / 5341.33 2288 / 2288 375 / 375 Output Total 775 / 1225 2450 / 3050 800 / 800 Balance 3905.33 / 4116.33 -162 / -762 -425 / -425 Microbiology Past 72 Hours 04/08/19 11:40 Mucosa - Nose Respiratory Panel (PCR) - Final 04/05/19 21:50 Urine Catheter - Catheter Urine Culture - Final Culture exhibits no growth. 04/05/19 20:10 Blood Culture (Wb) - Right Wrist Blood Culture - Preliminary No growth in 48 hours. 04/05/19 19:45 Blood Culture (Wb) - Left Forearm Blood Culture - Preliminary No growth in 48 hours. 04/05/19 21:50 Urine Catheter - Catheter Legionella Antigen - Final 04/05/19 21:50 Urine Catheter - Catheter Streptococcus pneumoniae Antigen (M - Final Laboratory Results 04/09/19 05:30: WBC 4.6, RBC 4.10 L, Hgb 12.9, Hct 41.4, MCV 101.0 H, MCH 31.5, MCHC 31.2 L, RDW Std Deviation 51.2 H, RDW Coeff of Tru 13.9, Plt Count 111 L, MPV 12.9 H, Immature Gran % (Auto) 0.700, Neut % (Auto) 60.9, Lymph % (Auto) 22.6, [place] % (Auto) 11.0 H, Eos % (Auto) 4.4, Baso % (Auto) 0.4, Absolute Neuts (auto) 2.8, Absolute Lymphs (auto) 1.03, Nucleated RBC % 0 04/09/19 05:30: Sodium Pending, Potassium Pending, Chloride Pending, Carbon Dioxide Pending, Anion Gap Pending, BUN Pending, Creatinine Pending, Est GFR (MDRD) Af Amer Pending, Est GFR (MDRD) Non-Af Pending, BUN/Creatinine Ratio Pending, Glucose Pending, Calcium Pending Current Medications Acetaminophen (Tylenol) 650 mg RECTAL Q4H PRN PRN PRN Reason: Pain Score 1-10/Temp > 100.7 F Albuterol Sulfate (Ventolin Aerosols) 2.5 mg INHALATION Q6H.RT LB Last Admin: 04/08/19 19:40 Dose: 2.5 mg Documented by: Calamine/Phenol (Calmoseptine Ointment) 1 applic TOPICAL BID [facility]; Protocol Last Admin: 04/08/19 21:16 Dose: 1 applicatio Documented by: Enoxaparin Sodium (Lovenox) 40 mg SC DAILY [facility] Last Admin: 04/08/19 09:31 Dose: 40 mg Documented by: Famotidine (Pepcid) 20 mg GT BID [facility] Last Admin: 04/08/19 21:15 Dose: 20 mg Documented by: Glucagon () 1 mg IM .X1 PRN PRN Reason: Hypoglycemia Vancomycin IV Pharmacy to Dose (1,250 ea/ Sodium Chloride) 500 mls @ 250 mls/hr IV PRN PRN; Protocol Meropenem 1 gm/ Sodium (Chloride) 120 mls @ 33 mls/hr IV Q8 [facility] Last Admin: 04/09/19 05:13 Dose: 33 mls/hr Documented by: Enteral Nutritional Formula (Jevity 1.5) 1,100 mls @ 55 mls/hr GT DAILY@1400 [facility] Last Admin: 04/08/19 14:59 Dose: 55 mls/hr Documented by: Vancomycin HCl (Vancomycin) 1,000 mg in 200 mls @ 200 mls/hr IV Q12H [facility] Last Infusion: 04/09/19 02:44 Dose: Infused Documented by: Multivitamins/Minerals (Multivitamin With Minerals) 1 tablet GT DAILYCM [facility] Last Admin: 04/08/19 09:30 Dose: 1 tablet Documented by: Nystatin (Mycostatin Powder) 1 applic TOPICAL BID [facility]; Protocol Last Admin: 04/08/19 21:16 Dose: 1 applic Documented by: Ondansetron HCl (Zofran) 4 mg IV Q8H PRN PRN PRN Reason: NAUSEA/VOMITING Polyethylene Glycol (Miralax) 17 gm GT QHS [facility] Last Admin: 04/08/19 19:22 Dose: Not Given Documented by: Sodium Chloride () 10 - 40 ml IV UD PRN PRN Reason: SALINE FLUSH Last Admin: 04/08/19 21:18 Dose: 10 ml Documented by: Home Medications: Medications to take at Discharge Cran/Vitc/Mannose/Fos/Bromeln [Uti-Stat Liquid] 3,875 mg GT QHS 04/05/19 Multivitamin/Ferrous Gluconate [Multi-Delyn with Iron Liquid] 10 mg GT DAILY 04/05/19 Polyethylene Glycol 3350 [Miralax] 17 gm GT QHS 04/05/19 Acetaminophen [Tylenol Suppository] 650 mg RECTAL Q4H PRN PRN #20 suppos. 04/09/19 Albuterol Aerosols [Ventolin Aerosols] 2.5 mg INHALATION Q2H PRN PRN #1 box 04/09/19 Albuterol Aerosols [Ventolin Aerosols] 2.5 mg INHALATION Q6H.RT 7 Days #1 box 04/09/19 Cefdinir [Omnicef [equiv]] 300 mg PO Q12H #10 cap 04/09/19 Doxycycline 100 mg PO BID #10 cap 04/09/19 Famotidine [Pepcid] 20 mg GT BID #60 tab 04/09/19 Menthol/Lanolin/Calamine/Znox [Calmoseptine Ointment] 1 applic TOPICAL BID #1 tube 04/09/19 Nebulizer [Lc Star] 1 ea UD #1 kit 04/09/19 Nystatin Powder [Mycostatin Powder] 1 applic TOPICAL BID #1 bottle 04/09/19 Following Prescrptions Were Given to Patient: Menthol/Lanolin/Calamine/Znox [Calmoseptine Ointment] 1 applic TOPICAL BID #1 tube Doxycycline 100 mg PO BID #10 cap Nebulizer [Lc Star] 1 ea MC UD #1 kit Nystatin Powder [Mycostatin Powder] 1 applic TOPICAL BID #1 bottle Cefdinir [Omnicef [equiv]] 300 mg PO Q12H #10 cap Famotidine [Pepcid] 20 mg GT BID #60 tab Acetaminophen [Tylenol Suppository] 650 mg RECTAL Q4H PRN PRN #20 suppos. PRN Reason: Pain Score 1-10/Temp > 100.7 F Albuterol Aerosols [Ventolin Aerosols] 2.5 mg INHALATION Q2H PRN PRN #1 box PRN Reason: Dyspnea, wheezing Albuterol Aerosols [Ventolin Aerosols] 2.5 mg INHALATION Q6H.RT 7 Days #1 box Primary Care Physician: Raman Gomez III, MD [Primary Care Provider] - Please follow up with your Primary Care Physician in: Follow-up within 3-5 days of discharge to review admission. Disposition: [facility] facility Minutes spent on discharge:: 35 Patient Condition:: Fair Medical Necessity - Tobacco Use Smoking Status: Smoker, status unknown Meaningful Use Info Meaningful Use Diagnoses (Choose all that apply): None applicable Code Visit Inpatient E&M: 03721 Disch Hosp
[2019-04-09] MEDS: Albuterol 2.5 MG/3 ML VIAL.NEB. INHALATION (06:40)
[2019-04-09 06:41] VITALS: PULSE 92; RESP 20; O2SAT 98
[2019-04-09 06:41] LABS: Anion Gap 4 (5-15); BUN 12 mg/dL (7-18); BUN/Creat Ratio 26.2 RATIO (10-20); Calcium,Total 8.6 mg/dL (8.5-10.1); Chloride 114 mmol/L (98-107); Creatinine, Serum 0.46 mg/dL (0.55-1.02); EST Glomerular Filtration Rate 144 mL/min (>60); Est Glom Filt Rate - Afr Amer 174 mL/min (>60); Estimated Creatinine Clearance 54.32 ml/min; Glucose 109 mg/dL (74-106); Potassium 3.9 mmol/L (3.5-5.1); Sodium Level 144 mmol/L (136-145)
[2019-04-09 08:00] VITALS: PULSE 67; RESP 24; TEMP 36.9; O2SAT 100
[2019-04-09 08:25] VITALS: BP 111/65; PULSE 67; RESP 24; TEMP 36.9; O2SAT 100
[2019-04-09 08:38] VITALS: RESP 24; O2SAT 100
[2019-04-09] MEDS: Famotidine 20 MG Tablet GT (09:21)
[2019-04-09] MEDS: Multivitamins,Ther W-Minerals Tablet 1 TABLET GT (09:21)
[2019-04-09] MEDS: Nystatin Powder 15gm Bottle 1 APPLIC TOPICAL (09:22)
[2019-04-09] MEDS: Menthol/Lanolin/Calamine/Znox 113 GM Tube 1 APPLIC TOPICAL (09:22)
[2019-04-09] MEDS: Enoxaparin 40 MG/0.4 ML Syringe SC (09:22)
--- NOTE | 2019-04-09 09:27 | CASEMGMT ---
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 SOPHIA faxed completed discharge paperwork to [facility] including transfer to extended care facility, signed medication list and any scripts. Original in SNF folder and copy on pt's chart. SOPHIA placed a call to [facility] and arranged transportation via cot at 11:00am. Transportation form completed and placed on SNF folder and copy on pt's chart. SOPHIA placed a call to Marga at [facility] and updated her on discharge and transportation time. SOPHIA placed a call to pt's sister and guardian Elaine and updated her on discharge and transportation time. RN updated. Plan: Return to [facility] terminal make up operator with [facility] transporting via cot at 11:00am Caitlyn Dunbar MSW, PRICING COORDINATOR
[2019-04-09 10:44] VITALS: BP 126/65; PULSE 104; RESP 24; TEMP 37; O2SAT 94
--- NOTE | 2019-04-09 13:37 | NURSING ---
Late entry: Student documentation reviewed
--- NOTE | 2019-04-09 15:33 | NURSING ---
JAQUAN Figueroa from [facility] called for update regarding patients status at time of discharge. this RN attempted to call [facility] prior to patient discharge x3 without success of reaching an RN.
== END 2019-04-09 11:15 | disposition skilled nursing facility (03) | DRG 871 ==
LOC: ED 20:18 → MS3 04-06 00:39
PROVIDERS: Hospitalist; Admitting Provider Hospitalist; Emergency Provider Emergency Medicine; PCP Family Medicine; Visit Provider Family Medicine
DX: A41.9 Sepsis, unspecified organism (principal); J18.9 Pneumonia, unspecified organism; G82.50 Quadriplegia, unspecified; G91.9 Hydrocephalus, unspecified; E87.0 Hyperosmolality and hypernatremia; G93.1 Anoxic brain damage, not elsewhere classified; R65.20 Severe sepsis without septic shock; E86.0 Dehydration; Y95 Nosocomial condition; K21.9 Gastro-esophageal reflux disease without esophagitis; R13.10 Dysphagia, unspecified; M24.50 Contracture, unspecified joint; Z93.1 Gastrostomy status; Z98.2 Presence of cerebrospinal fluid drainage device; Z88.0 Allergy status to penicillin; Z66 Do not resuscitate; Z88.8 Allergy status to other drugs, medicaments and biological substances
CPT/HCPCS: 36415; 51702; 71045; 80048; 80053; 80202; 81001; 83605; 85025; 85610; 85730; 87040; 87086; 87449; 87633; 87641; 87804; 93005; 94640; 94667; 94762; 99285; J2185; J7030; J7040; J7050; A4216

== ENCOUNTER 2020-02-16 14:16 | Emergency (ER) | payer MEDICARE, MEDICAID, SELFPAY ==
[2019-04-06 01:29] VITALS: BMI 26.9
[2020-02-16 14:19] VITALS: BP 184/143; PULSE 88; RESP 16; TEMP 36.1; O2SAT 97; BMI 31.2
--- NOTE | 2020-02-16 14:51 | ED.RN ---
called [facility], staff reports pt peg was disconnected from feeding around 1000 this am. was found to be without peg tube during care. staff attempted to replace per usual protocol unable to advance tube into place. assisted dr soler and dr franco in attempts to place new peg. unsuccessful at this time.
--- NOTE | 2020-02-16 15:23 | ED.VISSUMM ---
- ER Visit Summary Date of Service: 02/16/20 Chief Complaint: PEG tube fell out History of Present Illness: The patient is a 69 F presenting from long term after PEG tube came out this morning. It has been out for approximately 4 to 5 hours. snf attempted to replace her PEG tube and were unsuccessful. Patient is nonverbal at baseline secondary to anoxic brain injury. Per long term notes PEG tube has been in place since 2013. Physical Examination: Vitals are stable. Patient is afebrile. Alert no acute distress. HEENT exam is unremarkable. Neck is supple. Lungs are clear and equal bilaterally. Heart is regular rate and rhythm. Abdomen is soft nontender nondistended. PEG tube out Extremities are unremarkable. Skin is warm and dry. Remainder of exam is unremarkable. Emergency Department Course and Treatment: Attempted PEG replacement, unsuccessful. Discussed with Dr Al who will evaluate the patient in the ED. PEG tube was replaced per Dr. Al. This was confirmed with x-ray. Patient will be sent back to the long term. Disposition: Discharge home Impression: Feeding tube replacement This note was generated with [employer] dictation software. It may contain incorrect words, spelling, and punctuation that were not noted in review of the chart prior to signing ED Disposition - Plan for ED Patient: Disposition: [facility] Acute Care Instructions: ED Feeding Tube Replacement Referrals: Raman Gomez III, MD [Primary Care Provider] -
--- NOTE | 2020-02-16 15:55 | RAD_ITS ---
STUDY: X-RAY - ABDOMEN/PELVIS REASON FOR EXAM: Female, 69 years old. PEG TUBE PLACEMENT -- 36 mL 50%gastrograin/50%water solution injected TECHNIQUE: Single AP view of the abdomen / pelvis following injection of the PEG tube. COMPARISON: None. FINDINGS: Activity identified with contrast in the stomach, extending into the proximal small bowel. FIGHT MANAGER shunt catheter projects over the right abdomen. There is an unremarkable bowel gas pattern. There is no demonstrated free abdominal air. The visualized liver, spleen and kidneys are grossly normal in size and morphology. Normal soft tissue structures. Normal visualized osseous structures. RAD/Abdomen Single View (Portable) IMPRESSION: G-tube. No extravasation. Electronically Signed: Sachin Tee MD (Brooks) at 16:30 EST , Service support ,
--- NOTE | 2020-02-16 16:03 | ED.DEP ---
ED Disposition - Plan for ED Patient: Instructions: ED Feeding Tube Replacement Referrals: Raman Gomez III, MD [Primary Care Provider] -
--- NOTE | 2020-02-16 16:10 | ED.RN ---
dr dillard place 10f catheter tube. checked placement with kub abd contrast. called [facility] for updated and called for transport for pt to return to her residence
[2020-02-16 16:11] VITALS: BP 137/80; PULSE 88; RESP 18; O2SAT 97
--- NOTE | 2020-02-16 17:31 | CON.PCM_ITS ---
- Consult Date of Consult: 02/16/20 - Reason for Consult Chief Complaint: gastrostomy tube fell out History of Present Illness: 69 y/o WF in a vegetative state - resident of [facility] - presents to [facility] ED because gastrostomy tube fell out Had recent outpatient gastrostomy tube replaced by Dr. Sharma on 01/04/2019 Has had multiple ED visits, because PEG tube fell out Had urgent gastostomy tube re-placement on 2012 when it was no longer in the proper position. Recently hospitalized for pneumonia Mar 2019. Past Medical History: Cellulitis and abscess of unspecified site scalp Contracture of lower leg joint ? Esophageal reflux ? Gastrostomy tube in place (HCC) ? Lymphangioma, any site ? Obstructive hydrocephalus (HCC) ? Persist vegetative state ([facility]) ? Postinfectious encephalopathy Past Surgical History: EGD 2005 PEG tube placements as above portacath placement, removal Medications: traMADol (ULTRAM) 50 mg tabletays. Via pegtube levetiracetam(KEPPRA 500 MG TAB) BID ACETAMINOPHEN 500 MG TAB (ELIXIR) via tube every four(4) to six(6) hours as needed for pain. mometasone furoate(NASONEX 50 MCG/ACTUATION SPRAY) [place] twice in each nostril once daily. METOCLOPRAMIDE 10 MG TAB TID promethazine hcl(PHENERGAN 25 MG RECTAL SUPPOSITORY) Insert one(1) suppository rectally every four(4) to six(6) hours as needed for nausea. loperamide hcl(IMODIUM A-D 2 MG TAB) PRN ONDANSETRON HCL (PF) 4 MG/2 ML INJECTION PRN pseudoephedrine tannate(ENTEX 22.5 MG/5 ML ORAL SUSP) BID PRN IBUPROFEN 200 MG TAB PRN Take 1-2 tablet's) every four(4) to six(6) hours as needed for pain. sodium chloride(SALINE NASAL 0.65 % SPRAY AEROSOL) PRN ACETAMINOPHEN 500 MG TAB PRN Take one(1) tablet every four(4) to six(6) hours as needed for pain. guaifenesin/d-methorphan hb(GUIATUSS DM 10 MG-100 MG/5 ML SYRUP) PRN magnesium hydroxide/al hydrox(RULOX 225 MG-200 MG/5 ML ORAL SUSP) PRN azithromycin(ZITHROMAX 200 MG/5 ML ORAL SUSP) 10cc day #1, then 5cc per day for 4 days PHENERGAN 25 MG RECTAL SUPPOSITORY 1 per rectum three times a day as needed for nausea/vomiting Allergies: ampicillin, levofloxacin, penicillins, quinolones, rifampin, streptomycin,tazobactam Social history: resident of [facility] Review of Systems: patient is non communicative, ROS cannot be obtained Physical examination: Vital signs Temp 97F HR 88 RR 16 BP 137/80 General WD/WN obese WF in no apparent distress, non communicative HEENT Normocephalic. Neck is supple Trachea is midline. Lungs no labored breathing noted, such as retractions. No cough heard. Heart normal heart sounds. Abdomen soft and benign and obese, gastrostomy with small opening noted - area was lubricated with surgi-lube, I was able to pass a 10Fr pediatric Kelly catheter into the tract. Gastric fluid emanated. KUB was obtained with gastrografin - 40 cc used and there was contrast in the stomach and small intestine Extremities no pitting edema noted. Genitourinary/Rectal deferred Skin normal skin integrity. Neurological vegetative state Psychological vegetative state Impression: gastrostomy tube fell out Discussion/Plan; I have replaced the gastrostomy tube with a 10Fr pediatric Kelly. This will have to be replaced in the future, patient can be followed up as an outpatient for consideration of this. In the meantime, the tube can be used for hydration and feeding, albeit extra care must be maintained to keep it intact and open.
== END 2020-02-16 16:46 ==
PROVIDERS: Emergency Provider Emergency Medicine; PCP Family Medicine
DX: Z43.1 Encounter for attention to gastrostomy (principal); K21.9 Gastro-esophageal reflux disease without esophagitis; Z87.820 Personal history of traumatic brain injury
CPT/HCPCS: 74018; 99283

== ENCOUNTER 2020-03-31 10:55 | Day surgery (SDC) | payer MEDICARE, MEDICAID, SELFPAY ==
--- NOTE | 2020-03-29 17:42 | HP.PCM_ITS ---
History and Physical Date of Admission: 03/31/20 HISTORY AND PHYSICAL ? Elena FLANAGAN 1950 ? ? REFERRING PHYSICIAN: Raman Gomez III, MD ? CHIEF COMPLAINT: Consult (skin lesion) ? HPI: The patient is a 69 year old female presents with abnormal skin lesion of left lower extremity - calf area. The patient is in a permanent vegetative state and a resident of a senior care. The skin lesion has been there for an unknown period of time. Unknown pain status of this skin lesion. The lesion has been treated by wound nurse with no improvement There is concern for possibiity of skin cancer. The patient has had numerous replacements of her gastrostomy tube - most recently was 02/16/2020, of which the only placement that could be done is with a 10Fr pediatric Kelly catheter. Also had outpatient gastrostomy tube replaced by Dr. Sharma on 01/04/2019 Has had multiple ED visits, because PEG tube fell out Had urgent gastostomy tube re-placement on 2012 when it was no longer in the proper position. Recently hospitalized for pneumonia Mar 2019. Had been scheduled for procedure last month but was positive for COVID. ?? PAST MEDICAL HISTORY ? Cellulitis and abscess of unspecified site ? ? scalp ? Contracture of lower leg joint ? ? Esophageal reflux ? ? Gastrostomy tube in place (HCC) ? ? Lymphangioma, any site ? ? Obstructive hydrocephalus (HCC) ? ? Persist vegetative state (HCC) ? ? Postinfectious encephalopathy ? ? PAST SURGICAL HISTORY ? EGD W/O BRSH SPECIMEN W/BX ? 03/29/2005 ? EGD W/O OR W/BRUSH/WASH ? 07/30/2012 ? PEG Mushroom not in stomach or prox small bowel ? PERQ REPLACEMENT GTUBE NOT REQ REVJ GSTRST TRC ? 02/16/2020 ? ? Current Outpatient Medications ? ammonium lactate (LAC-HYDRIN) 12 % lotion Apply to affected area as needed. ? ACETAMINOPHEN 500 MG TAB (ELIXIR) via tube every four(4) to six(6) hours as needed for pain. ? ACETAMINOPHEN 500 MG TAB PRN Take one(1) tablet every four(4) to six(6) hours as needed for pain. ? traMADol (ULTRAM) 50 mg tablet cubex for 1 day ? traMADol (ULTRAM) 50 mg tablet 1 tablet every 12 hours as needed for Pain (May crush.) for up to 30 days. Via pegtube ? levetiracetam(KEPPRA 500 MG TAB) BID ? mometasone furoate(NASONEX 50 MCG/ACTUATION SPRAY) Brogue twice in each nostril once daily. ? METOCLOPRAMIDE 10 MG TAB TID ? promethazine hcl(PHENERGAN 25 MG RECTAL SUPPOSITORY) Insert one(1) suppository rectally every four(4) to six(6) hours as needed for nausea. ? loperamide hcl(IMODIUM A-D 2 MG TAB) PRN ? ONDANSETRON HCL (PF) 4 MG/2 ML INJECTION PRN ? pseudoephedrine tannate(ENTEX 22.5 MG/5 ML ORAL SUSP) BID PRN ? IBUPROFEN 200 MG TAB PRN Take 1-2 tablet's) every four(4) to six(6) hours as needed for pain. ? sodium chloride(SALINE NASAL 0.65 % SPRAY AEROSOL) PRN ? guaifenesin/d-methorphan hb(GUIATUSS DM 10 MG-100 MG/5 ML SYRUP) PRN ? magnesium hydroxide/al hydrox(RULOX 225 MG-200 MG/5 ML ORAL SUSP) PRN ? azithromycin(ZITHROMAX 200 MG/5 ML ORAL SUSP) 10cc day #1, then 5cc per day for 4 days ? PHENERGAN 25 MG RECTAL SUPPOSITORY 1 per rectum three times a day as needed for nausea/vomiting ? ? ALLERGIES: Ampicillin, Levaquin [Levofloxacin], Penicillins, Quinolones, Rifampin, Rocephin [Ceftriaxone Sodium], Streptomycin, Tazobactam, and Zosyn [Piperacillin-Tazobactam] ? PERSONAL HISTORY: Social History ?Tobacco Use ? Smoking status: Never Smoker Substance Use Topics ? Alcohol use: No ? Drug use: No FAMILY HISTORY: non contributory ? REVIEW OF SYSTEMS: Cannot be obtained due to patient's vegetative state ? PHYSICAL EXAMINATION: General: The patient is 69 year old female, well nourished, well hydrated in no acute distress. Patient is non responsive and non communicative. VITALS: Pulse 89, temperature 36.4 ?C (97.5 ?F), height 167.6 cm (5' 6), weight 85 kg (187 lb 6.4 oz). Body mass index is 30.25 kg/m?. General WD/WN obese WF in no apparent distress, non communicative HEENT Normocephalic. Neck is supple Trachea is midline. Lungs no labored breathing noted, such as retractions. No cough heard. Heart normal heart sounds. Abdomen soft and benign and obese, gastrostomy with small opening noted -[address] Extremities no pitting edema noted. Genitourinary/Rectal deferred Skin Pigmented excoriated skin lesion of calf of left lower extremity suspicious for skin cancer otherwise normal skin integrity. Neurological vegetative state Psychological vegetative state ? ? IMPRESSION: skin lesion that is probably cancer, attention to gastrostomy tube ? PLAN: I have discussed the above with the patient who is accompanied by her sister who is her legal POA. I have offered excision of this skin lesion and to allow area to heal by secondary intention - wound care provider by senior care. I have also offered attempt at replacing gastrostomy tube with larger caliber tube. I have explained the procedures to her. I have counseled the patient as to the risks of the procedure, including but not limited to: infection, bleeding, injury to any blood vessels/nerves, scar tissue, inability to revise gastrostomy tube, wound infections, complications of anesthesia, etc. ? the patient's sister understands. The patient's sister agrees to proceed. I have answered all questions to the patient?s sister satisfaction and she has no further questions. . Diagnoses: (L81.9) Pigmented skin lesion of uncertain nature (primary encounter diagnosis) (K94.20) Complication of gastrostomy tube (HCC) Return to Clinic: The patient is instructed to follow-up with me after the procedure. ? ? Ibeth Al MD
[2020-03-31] VITALS (8 sets, daily range): BP systolic 106–154; BP diastolic 58–124; PULSE 81–91; RESP 16; TEMP 36.1–36.4; O2SAT 93–99; BMI 30.5
[2020-03-31] MEDS: Lactated Ringers 1,000 ML 75 ML IV ×2 (11:15→14:16)
--- NOTE | 2020-03-31 11:30 | LES_PTH ---
PATIENT: RONALD FLANAGAN LOC: [facility] [place] U#:[id number] AGE/SX: 69/F ROOM: RE03/31/[address]: Dr. Ibeth Al MD : 1950 BED: DIS: 03/31/2020 SPEC #: [id number] RECD: 03/31/20 15:51 STATUS: SIDDHARTHA REChao #: [id number] ELSI: 03/31/20 11:[address]: Ibeth Al DEPT: SURGICAL PATHOLOGY RECD BY: Mohini Bray ENTERED: 04/01/20 11:04 SP TYPE: Lesion OTHR DR: Dr. Raman Gomez III, MD Tissues: Skin of leg, NOS Procedures: Surgery Specimen Level IV HEADER OPERATION: Excision lesion lower extremity PRE-OP DIAGNOSIS: Skin lesion TISSUE SUBMITTED: Left leg skin cancer, short suture saavedra superior border, long - inferior, short - anterior MICROSCOPIC DIAGNOSIS Left leg skin lesion, excisional biopsy: Basal cell carcinoma with focal ulceration and associated inflammation, completely excised (1.2?cm in greatest dimension). LARS:john 04/02/2020 COMMENT Case has been reviewed in consultation with Dr. Pat who concurs with the above diagnosis. IDC:AM MICROSCOPIC DESCRIPTION Slides are reviewed. GROSS DESCRIPTION Received in fixative is one container labeled with the patient's name and designated left leg skin lesion. The specimen consists of a discoid fragment of aguilar skin measuring 2 x 2 x 0.6 cm. The specimen is oriented and has been differentially inked as follows: superior - black, inferior - blue, anterior - red and posterior - yellow. The cutaneous surface displays an irregular ulcer measuring 1.6 cm in greatest dimension. The specimen is serially sectioned and totally submitted in three cassettes. / AM:john 04/01/20 TC:0 CPT: 78763
[2020-03-31] MEDS: Lidocaine 1% (20 ml mdv) 20 ML Vial (14:25)
--- NOTE | 2020-03-31 14:37 | PCM.OPRPT ---
Report of Operation Date of Procedure: 03/31/20 Pre-Operative Diagnosis: abnormal skin lesion of left lower extremity Post-Operative Diagnosis: same Surgery/Procedure Performed:: excision of abnormal skin lesion of left lower extremity Description of Surgical Findings:: abnormal skin lesion of left lower extremity - probable skin cancer, sutures marking margins Type of Anesthesia:: Local MAC Anesthesiologist: Zeinab Emery Specimen's removed: 2.2 cm skin lesion of left lower extremity Estimated Blood Loss (mL): > 5 Fluids Replaced: 400 ml RL Description of Procedure: After informed consent was given, the patient was brought to the operating room and placed in the supine position. Appropriate time out protocol was followed. IV conscious sedation was then administered by the anesthesia provider. The patient?s left lower extremity was then prepped with a surgical skin preparation and sterile surgical drapes were placed. The skin and subcutaneous tissues in and around the lesion were then infiltrated with 1% xylocaine with epinephrine. A skin incision was then made with a 15 blade scalpel around the entire lesion with at least a 0.5 cm margin. The incision was carried down through to the subcutaneous tissues. Any hemorrhage was controlled with electrocautery. The lesion was then removed. it was measured at 2.2 cm in maximum dimension. Hemostasis of the wound bed was controlled by electrocautery. No further suspicious lesion was noted. The wound was packed with saline soaked gauze. Dry gauze placed over this and secured with Koban. The patient tolerated the procedure well and was brought to the Recovery Room in stable condition. - Complications none noted
--- NOTE | 2020-03-31 14:56 | DCINST_ITS ---
Discharge Diet: No Restrictions Discharge Activity: Return to Normal Activity Call your doctor if your incision/area has: Continuous Slow Oozing - apply pressure to area for at least an hour, if still bleeding (saturating through and beyond dressing) go to ER, Foul Smelling Discharge Additional Instructions: Recommended pain control regimen - May take 600 mg ibuprofen (Motrin) and then in 3-4 hours, may take 650 mg acetaminophen (Tylenol), then in 3-4 hours may take 600 mg ibuprofen, then in 3- 4 hours may take 650 mg acetaminophen and so on for 2-3 days May take narcotic pain medication for pain that is not controlled by above and at night for comfort through the night Leave dressings in place Sponge bathe only May take down dressing on Monday, then do daily moist saline soaked gauze placed in the wound with dry gauze on top. Follow up with me in 1-2 weeks Allergies/Adverse Reactions: Allergies ampicillin Allergy (Verified 03/31/20 11:33) Unknown levofloxacin Allergy (Verified 03/31/20 11:33) Unknown Penicillins Allergy (Verified 03/31/20 11:33) Unknown piperacillin Allergy (Verified 03/31/20 11:33) Unknown Quinolones Allergy (Verified 03/31/20 11:33) Unknown rifampin Allergy (Verified 03/31/20 11:33) Unknown streptomycin Allergy (Verified 03/31/20 11:33) Unknown tazobactam Allergy (Verified 03/31/20 11:33) Unknown Medications to take at Discharge Cran/Vitc/Mannose/Fos/Bromeln [Uti-Stat Liquid] 3,875 mg GT QHS 04/05/19 Multivitamin/Ferrous Gluconate [Multi-Delyn with Iron Liquid] 10 mg GT DAILY 04/05/19 Polyethylene Glycol 3350 [Miralax] 17 gm GT QHS 04/05/19 Famotidine [Pepcid] 20 mg GT BID #60 tab 04/09/19 Nystatin Powder [Mycostatin Powder] 1 applic TOPICAL BID #1 bottle 04/09/19 Magnesium Hydroxide [Milk Of Magnesia] 30 ml GT PRN PRN 03/24/20 Primary Care Physician: Raman Gomez III, MD [Primary Care Provider] - Test Results: Test results from this visit will be discussed in further detail at your follow- up appointment, if applicable. Please Follow Up With: Ibeth Al MD - call When: to be seen in 1-2 weeks, please call for time and date, thank you
--- NOTE | 2020-03-31 16:22 | SUR.PHASEII ---
report called to Syeda at [facility]
== END 2020-03-31 16:57 | disposition home or self-care (01) ==
LOC: SDC 10:57 → AC 11:00
PROVIDERS: PCP Family Medicine; Referring Provider Surgery; Visit Provider Surgery
PROC: (CPT 11603; principal; 2020-03-31 11:15)
DX: C44.719 Basal cell carcinoma of skin of left lower limb, including hip (principal)
CPT/HCPCS: 11603; 88305; J7120

== ENCOUNTER → 2020-09-09 05:00 | Outpatient (REF) | payer MEDICARE, MEDICAID, SELFPAY ==
[2020-03-31 12:00] VITALS: BMI 30.5
[2020-09-09 08:18] LABS: Absolute Lymphocyte Count 1.46 X10^3/uL (0.83-4.51); Absolute Neutrophil Count 4.5 X10^3/uL (2.0-7.7); Basophil# 0.04 X10^3/uL; Basophil% 0.6 % (0-1); Eosinophil# 0.18 X10^3/uL; Eosinophils% 2.6 % (0-5); Hemoglobin 13.9 g/dL (12.0-15.0); Lymphocyte # 1.46 X10^3/ul (0.83-4.51); Lymphocyte % 21.3 % (19-41); Mean Corp Hgb Conc 31.6 g/dL (32-36); Mean Corpuscular Hgb 31.7 pg (27.0-32.0); Mean Corpuscular Volume 100.5 fL (81-99); Mean Platelet Vol. 12.6 fl (6.2-12.0); Monocyte# 0.64 X10^3/uL; Monocyte% 9.3 % (0-10); NRBC Flagged by Analyzer 0 % (0-5); Neutrophil # 4.52 X10^3/uL (2.7-7.7); Neutrophil % 65.8 % (47-70); Platelet Count 180 K/mm3 (150-450); RBC Distribution Width SD 51.1 fl (35.1-43.9); Red Blood Count 4.38 M/mm3 (4.2-5.4); White Blood Count 6.9 K/mm3 (4.4-11.0)
[2020-09-09 08:58] LABS: ALB/GLOB Ratio 0.9 RATIO (0.9-2.4); AST(SGOT) 36 U/L (15-37); Alanine Aminotransfer ALT/SGPT 60 U/L (13-56); Albumin, Serum 3.1 g/dL (3.2-5.0); Alkaline Phosphatase 124 U/L (45-117); Anion Gap 7 (5-15); BUN 17 mg/dL (7-18); BUN/Creat Ratio 41.9 RATIO (10-20); Calcium,Total 8.4 mg/dL (8.5-10.1); Chloride 105 mmol/L (98-107); Creatinine, Serum 0.41 mg/dL (0.55-1.02); EST Glomerular Filtration Rate 165 mL/min (>60); Est Glom Filt Rate - Afr Amer 199 mL/min (>60); Globulin 3.5 g/dL (2.2-4.2); Glucose 119 mg/dL (74-106); Potassium 4.1 mmol/L (3.5-5.1); Protein, Total 6.6 g/dL (6.4-8.2); Sodium Level 136 mmol/L (136-145)
== END ==
LOC: OLS.SW500 05:00
PROVIDERS: PCP Family Medicine; Visit Provider Internal Medicine
DX: D18.1 Lymphangioma, any site (principal); G91.1 Obstructive hydrocephalus
CPT/HCPCS: 36415; 80053; 85025; 87070; 87077; 87186; 87205

== ENCOUNTER → 2020-10-12 04:00 | Outpatient (REF) | payer MEDICARE, MEDICAID, SELFPAY ==
[2020-03-31 12:00] VITALS: BMI 30.5
[2020-10-12 08:21] LABS: Absolute Neutrophil Count 4.7 X10^3/uL (2.0-7.7); Basophil# 0.06 X10^3/uL; Basophil% 0.8 % (0-1); Eosinophil# 0.19 X10^3/uL; Eosinophils% 2.6 % (0-5); Hematocrit 44.2 % (37-47); Hemoglobin 14.5 g/dL (12.0-15.0); Lymphocyte % 21.7 % (19-41); Mean Corp Hgb Conc 32.8 g/dL (32-36); Mean Corpuscular Hgb 32.6 pg (27.0-32.0); Mean Corpuscular Volume 99.3 fL (81-99); Monocyte# 0.75 X10^3/uL; Monocyte% 10.2 % (0-10); NRBC Flagged by Analyzer 0 % (0-5); Neutrophil # 4.72 X10^3/uL (2.7-7.7); Platelet Count 193 K/mm3 (150-450); RBC Distribution Width CV 13.8 % (11.6-14.6); Red Blood Count 4.45 M/mm3 (4.2-5.4); White Blood Count 7.4 K/mm3 (4.4-11.0)
[2020-10-12 08:43] LABS: ALB/GLOB Ratio 0.9 RATIO (0.9-2.4); AST(SGOT) 31 U/L (15-37); Alanine Aminotransfer ALT/SGPT 59 U/L (13-56); Albumin, Serum 3.2 g/dL (3.2-5.0); Alkaline Phosphatase 126 U/L (45-117); Anion Gap 8 (5-15); BUN 16 mg/dL (7-18); BUN/Creat Ratio 39.9 RATIO (10-20); Calcium,Total 8.8 mg/dL (8.5-10.1); Chloride 105 mmol/L (98-107); EST Glomerular Filtration Rate 167 mL/min (>60); Est Glom Filt Rate - Afr Amer 202 mL/min (>60); Globulin 3.6 g/dL (2.2-4.2); Glucose 120 mg/dL (74-106); Protein, Total 6.8 g/dL (6.4-8.2); Sodium Level 137 mmol/L (136-145)
== END ==
LOC: OLS.SW500 04:00
PROVIDERS: PCP Family Medicine; Visit Provider Internal Medicine
DX: G91.1 Obstructive hydrocephalus (principal); D18.1 Lymphangioma, any site
CPT/HCPCS: 36415; 80053; 85025

== ENCOUNTER → 2020-10-26 04:00 | Outpatient (REF) | payer MEDICARE, MEDICAID, SELFPAY ==
[2020-03-31 12:00] VITALS: BMI 30.5
[2020-10-26 07:12] LABS: Thyroid Stim Hormone (TSH) 1.21 uIU/mL (0.358-3.74)
== END ==
LOC: OLS.SW500 04:00
PROVIDERS: PCP Family Medicine; Visit Provider Family Medicine
DX: E03.9 Hypothyroidism, unspecified (principal)
CPT/HCPCS: 36415; 84443

== ENCOUNTER → 2021-01-09 07:50 | Outpatient (REF) | payer MEDICARE, MEDICAID, SELFPAY ==
[2021-01-09 09:55] LABS: Hemoglobin A1c 4.9 % (3.8-5.6)
== END ==
LOC: OLS.SW500 07:50
PROVIDERS: PCP Family Medicine; Visit Provider Internal Medicine
DX: T81.89XA Other complications of procedures, not elsewhere classified, initial encounter (principal); Z79.899 Other long term (current) drug therapy
CPT/HCPCS: 36415; 83036

== ENCOUNTER 2021-02-11 10:42 | Emergency (ER) | payer MEDICARE, MEDICAID, SELFPAY ==
[2021-02-11] VITALS (9 sets, daily range): BP systolic 75–150; BP diastolic 43–137; PULSE 138–148; RESP 12–46; TEMP 36.4–37.5; O2SAT 88–98; BMI 28.1
[2021-02-11] MEDS: Morphine 4 MG/ML Syringe IV ×3 (11:06→14:44)
[2021-02-11] MEDS: LORazepam 2 MG/ML Syringe 1 MG IV ×2 (11:07→11:36)
[2021-02-11] MEDS: Ondansetron 4 MG/2 ML Vial IV (11:12)
--- NOTE | 2021-02-11 11:26 | ED.RN ---
THIS RN CONTACTED PT SISTER JOVANNA LARA ON PT ARRIVAL TO THE ED. DR. HUMPHRIES TO SPEAK WITH FAMILY ON ARRIVAL. PER DR. HUMPHRIES ORDER, PT REMOVED FORM BIPAP AND PLACED ON NASAL CANNULA 2 L. PT GIVEN MEDICATIONS ORDERED PER DOCTOR FOR COMFORT. PT MOVED UP IN BED AND PLACED IN A POSITION OF COMFORT.
--- NOTE | 2021-02-11 11:32 | ED.RN ---
MOTHER AND SISTER AT THE BEDSIDE
--- NOTE | 2021-02-11 11:47 | ED.VIS.DYS ---
HPI History of Present Illness Chief Complaint: Shortness of Breath Informant: family, EMS and SNF Narrative Narrative: 70-year-old female history of anoxic brain injury has been in a persistent vegetative state for years. Her sister is her POA. group home reports that she acutely became short of breath today. EMS notes that she was quite tachypneic and hypoxic. No reported fevers. Patient reportedly has been on antibiotics due to bed wound. Reports are that she is a DNR [facility] Medical History (Updated 02/11/21 @ 14:[address] Nikko Elise DO) Anemia Anoxic brain injury Dysphagia GERD (gastroesophageal reflux disease) Hydrocephalus in adult Tracheostomy in place Home Medications aflx-ssmC-ximgwwp-FOS-bromeln 3,875 mg GT QHS 04/05/19 [History Last Taken Unknown] multivitamin-ferrous gluconate 10 mg GT DAILY 04/05/19 [History Last Taken Unknown] polyethylene glycol 3350 17 gm GT QHS 04/05/19 [History Last Taken Unknown] famotidine 20 mg GT BID #60 tab 04/09/19 [Rx Last Taken Unknown] nystatin 1 applic TOPICAL BID #1 bottle 04/09/19 [Rx Last Taken Unknown] magnesium hydroxide 30 ml GT PRN PRN 03/24/20 [History Last Taken Unknown] Allergy/AdvReac Type Severity Reaction Status Date / Time ampicillin Allergy Unknown Verified 02/11/21 10:44 levofloxacin Allergy Unknown Verified 02/11/21 10:44 Penicillins Allergy Unknown Verified 02/11/21 10:44 piperacillin Allergy Unknown Verified 02/11/21 10:44 Quinolones Allergy Unknown Verified 02/11/21 10:44 rifampin Allergy Unknown Verified 02/11/21 10:44 streptomycin Allergy Unknown Verified 02/11/21 10:44 tazobactam Allergy Unknown Verified 02/11/21 10:44 Surgical History (Updated 02/11/21 @ 11:[address] Nikko Elise DO) PEG (percutaneous endoscopic gastrostomy) status Social History (Updated 02/11/21 @ 11:[address] Nikko Elise DO) Smoking Status: Unknown if ever smoked substance use type: does not use ROS ROS ED Review of Systems ROS Unobtainable: due to mental status EXAM Physical Exam Narrative Exam Narrative: Patient is an obvious respiratory distress Const Vital Signs: 02/11/21 10:45 12/02/21 10:49 02/11/21 10:52 Temperature 97.5 F L Temperature Source Temporal Pulse Rate 146 H 146 H Respiratory Rate 43 H 43 H Respiratory Effort Labored Accessory Muscle Use Nasal Flaring Agonal Respiratory Pattern Grunting Blood Pressure 150/137 H Blood Pressure Mean 141 Pulse Ox 98 Oxygen Delivery Method Venturi Mask Bi-pap Oxygen Flow Rate (L/min) 15 Fraction of Inspired Oxygen (FIO2) 80 02/11/21 10:55 02/11/21 11:01 02/11/21 11:03 Temperature Temperature Source Pulse Rate 147 H Respiratory Rate 42 H Respiratory Effort Respiratory Pattern Blood Pressure 105/60 Blood Pressure Mean 75 Pulse Ox 94 Oxygen Delivery Method Nasal Cannula Nasal Cannula Nasal Cannula Oxygen Flow Rate (L/min) 2 2 2 Fraction of Inspired Oxygen (FIO2) 02/11/21 11:12 02/11/21 12:57 02/11/21 14:00 Temperature 99.5 F H Temperature Source Temporal Pulse Rate 138 H 142 H 143 H Respiratory Rate 46 H 24 H 32 H Respiratory Effort Respiratory Pattern Blood Pressure 107/49 L 91/46 L 77/44 L Blood Pressure Mean 68 61 55 Pulse Ox 88 88 90 Oxygen Delivery Method Nasal Cannula Nasal Cannula Nasal Cannula Oxygen Flow Rate (L/min) 2 2 2 Fraction of Inspired Oxygen (FIO2) Positive well nourished, well developed and obese General Appearance ED: well developed Nutritional Appearance: obese HEENT Reports normocephalic, head/scalp atraumatic and dry mucous membranes atraumatic Mouth ED: Yes dry mucous membranes Mouth: dry mucous membranes Eyes PERRL and EOMs intact bilaterally Neck no lymphadenopathy, supple and no JVD Resp Resp Narrative: Patient is tachypneic with rhonchorous lung sounds Cardio regular rhythm and no murmurs Rate: tachycardic GI normal to inspection, nondistended, normoactive bowel sounds and non-tender Palpation: soft Back/Spine no CVA tenderness and normal ROM Extremity General Extremety ED: Negative for edema General Extremity: Negative for edema Neuro Neuro Narrative: Chronic contractures Sensorium / Orientation: alert Psych Mood & Affect: tearful Skin no rashes or lesions noted Rashes: no rashes MDM MDM MDM Narrative Medical decision making narrative: It was clear upon the patient's arrival that she was in quite distress. I spoke with the patient's sister who is the POA and later with her mother. If we were to make her a full code and do everything I do not think it is going to change the outcome. I spoke with the family at the bedside and we had shared decision-making to invite hospice to help us care for her. Patient received morphine and Ativan and Robinul. Patient is currently tachypneic and tachycardic and hypoxic. She has been accepted to hospice. Discharge Plan Triage Chief Complaint: Shortness of Breath ED Provider: Nikko Elise Dx/Rx/DC Orders Clinical Impression: Acute respiratory failure, Anoxic brain injury, Hydrocephalus Prescriptions: No Action polyethylene glycol 3350 17 GM packet 17 gm GT QHS RF: 0 naap-esbR-nuomqfe-FOS-bromeln 3,875 MG/30 ML liquid 3,875 mg GT QHS RF: 0 multivitamin-ferrous gluconate 10 MG/5 ML liquid 10 mg GT DAILY RF: 0 famotidine 20 MG tablet 20 mg GT BID Qty: 60 RF: 0 nystatin 1 APPLIC bottle 1 applic topical BID Qty: 1 RF: 0 magnesium hydroxide 30 ML suspension 30 ml GT PRN PRN (Reason: Constipation) RF: 0 Primary Care Provider: Ada Beckett Referrals: Ada Beckett MD [Primary Care Provider] - Disposition Disposition: Hospice in Medical Facility Discharge Location: [facility]
[2021-02-11] MEDS: Glycopyrrolate 0.2 MG/ML Vial 0.1 MG IV (12:53)
--- NOTE | 2021-02-11 13:24 | NURSING ---
FAXED CHART TO HOSPICE. ELENA TALKING TO ELENA
--- NOTE | 2021-02-11 13:37 | CHAPLAIN ---
Type of Pastoral Visit _x__ Initial Visit ___ Follow-up Visit ___ On-call Visit ___ General Patient Visit ___ Spiritual Assessment ___ Family Conference ___ Bereavement ___ Rapid Response ___ Code Blue ___ Other (describe below) Pastoral Care Referral From ___ Patient ___ Family _x__ Nurse ___ Physician _x__ Radio Aerial Installer ___ Supervisor Accounting Clerks ___ Other (describe below) Sacrament/Intervention ___ Active listening ___ Anointing ___ Church ___ Bereavement ___ Communion ___ Susanna exploration ___ ___ Life review _x__ Prayer ___ Reconciliation ___ Sacrament of Sick _x__ Supportive presence ___ Wedding ___ Other (describe below) Pastoral Comments patient is from [facility] and is unresponsive and 89 year old mother and a sister are with her in room; mother is in tears over seeing her daughter near ; offer of presence, listening ear, prayer, and support given at bedside for pt and family; the family clergy has been called and will be coming also
--- NOTE | 2021-02-11 13:43 | NURSING ---
TIFFANIE, HOSPICE HERE
--- NOTE | 2021-02-11 14:16 | CM.ED ---
SW Note Referral Source: MD Referral Reason: Provide emotional support. SOPHIA met with patient's mother and sister, Elaine. Provided emotional support. SW obtained sister, Elaine, consent to call the family synthetic plasterer, Pastor Adrian Mullins at [facility]. SW called pastor Campbell and spoke to him and provided an update. He will be in to see patient in 35 minutes. gateman called Pastor Hurt from hospital. SW updated that Hospice was called for patient. SW remains available. Yarelis ZENG
--- NOTE | 2021-02-11 14:39 | NURSING ---
CALLED [facility], ETA IS 75 MIN
--- NOTE | 2021-02-11 15:12 | ED.RN ---
Report given to [facility] nurse regarding patient being moved to hospice from the ED.
--- NOTE | 2021-02-11 16:00 | ED.RN ---
REPORT GIVEN TO HOSPICE INPATIENT UNIT
== END 2021-02-11 16:15 | disposition hospice, inpatient (51) ==
PROVIDERS: Emergency Provider Emergency Medicine; PCP Internal Medicine
DX: J96.01 Acute respiratory failure with hypoxia (principal); G93.1 Anoxic brain damage, not elsewhere classified; G91.9 Hydrocephalus, unspecified; Z93.0 Tracheostomy status; E66.9 Obesity, unspecified; Z68.28 Body mass index [BMI] 28.0-28.9, adult; K21.9 Gastro-esophageal reflux disease without esophagitis; Z66 Do not resuscitate
CPT/HCPCS: 94002; 96374; 96375; 96376; 99285; J7030; A4216; J2405